=== PATIENT | female | born 1995 | race African-American/Black ===

== ENCOUNTER 2019-10-01 19:18 | Emergency (ER) | payer BC ==
--- NOTE | 2019-10-01 20:51 | Event Note ---
ED Screening Note Date of service: 10/01/19 Time: 20:47 ED Screening Note: This is a 24 y.o. F. that presents to the ER with abdominal pain for 2 hours. Patient is 17 weeks . Reports sharp pain and pelvic pressure that is more frequent. LMP 06/07/2020, with Dr. Mariam Fuentes at [facility] in [place]. Denies vaginal bleeding, urinary frequency, urgency, dysuria, hematuria, or back pain. This initial assessment/diagnostic orders/clinical plan/treatment(s) is/are subject to change based on patients health status, clinical progression and re- assessment by fellow clinical providers in the ED. Further treatment and workup at subsequent clinical providers discretion. Patient/guardian urged not to elope from the ED as their condition may be serious if not clinically assessed and managed. Initial orders include: Labs OB US
[2019-10-01 21:43] LABS: Bilirubin,Urine NEG (Negative); Blood,Urine MOD (Negative); Color,Urine Straw (Yellow); Protein,Urine <15 mg/dL mg/dL (Negative); Urobilinogen,Urine < 2.0 mg/dL (<2.0)
[2019-10-01 21:48] LABS: HCG Qualitative,Urine Positive (Negative)
[2019-10-01] MEDS ORDERED: ACETAMINOPHEN 500 MG TAB PO ONE (23:41)
--- NOTE | 2019-10-02 00:03 | Ultrasound Report ---
ULTRASOUND OBSTETRIC INDICATION / CLINICAL INFORMATION: abdominal pain, 17 wks preg. Clinical Gestational Age (GA): Uncertain TECHNIQUE: Transabdominal. COMPARISON: None available. FINDINGS: There is a single intrauterine . Biparietal Diameter = 3.9 cm = 18 weeks, 0 day(s). Head Circumference = 14.7 cm = 17 weeks, 6 day(s). Abdominal Circumference = 12.6 cm = 18 weeks, 2 day(s). Femur Length = 2.1 cm = 17 weeks, 3 day(s). Average Ultrasound Age (AUA) = 17 weeks, 6 day(s). Heart Rate: 139 beats per minute. Estimated Weight in grams (if calculated): 2 13 g Estimated Weight Growth Percentile (if calculated): Position: cephalic. Cervix: closed. Length in cm (if measured): 3.5 cm Placenta: Left lateral and free of the os. Amniotic Fluid Volume: normal Amniotic Fluid Index (MADYSON) in cm (if calculated): Not calculated. Maternal Adnexa: No significant abnormality. IMPRESSION: 1. Single, living intrauterine with estimated sonographic age of 17 weeks, 6 day(s). 2. No significant sonographic abnormality. Signer Name: Deborah Ferraro MD Signed: 10/01/2019 11:58 PM Workstation Name: [id number]
[2019-10-02 00:40] LABS: Basophils % (Auto) 0.3 % (0.0-1.8); Eosinophils # (Auto) 0.1 K/mm3 (0.0-0.4); Eosinophils % (Auto) 0.6 % (0.0-4.3); Hematocrit 37.9 % (30.3-42.9); Lymphocytes # (Auto) 2.6 K/mm3 (1.2-5.4); Mean Corpuscular HGB Conc 34 % (30-34); Mean Corpuscular Volume 92 fl (79-97); Monocytes # (Auto) 0.7 K/mm3 (0.0-0.8); Monocytes % (Auto) 6.5 % (0.0-7.3); Platelet Count 262 K/mm3 (140-440); Red Blood Count 4.14 M/mm3 (3.65-5.03); Red Cell Distribution Width 14.2 % (13.2-15.2)
[2019-10-02 00:59] LABS: Alanine Aminotransferase 19 units/L (7-56); Albumin 4.1 g/dL (3.9-5); BUN/Creatinine Ratio 14; Blood Urea Nitrogen 7 mg/dL (7-17); Calcium 9.1 mg/dL (8.4-10.2); Hemolysis Index 9
--- NOTE | 2019-10-02 01:44 | Emergency Department Report ---
ED Abdominal Pain HPI - General Chief Complaint: Abdominal Pain Stated Complaint: 17 WEEKS PREG, ABD PAIN,SIDE PAIN Time Seen by Provider: 10/01/19 20:47 Source: patient Mode of arrival: Ambulatory Limitations: No Limitations - History of Present Illness Initial Comments: Patient is a A0 24-year-old female who is approximately 17 weeks gestation and who presents to the ED with complaint of acute onset persistent diffuse lower abdominal pain for the last 8 hours worse in the last 2 hours. Patient denies nausea, vomiting, vaginal bleeding, vaginal discharge, dysuria, urinary frequency and urgency, traumatic injury, heavy lifting, fever, chills, cough, chest pain, shortness of breath or headache and syncope. MD Complaint: abdominal pain -: Sudden, hour(s) (8) Location: periumbilical, suprapubic Radiation: suprapubic Migration to: no migration Severity scale (0 -10): 3 Quality: cramping, aching Consistency: constant Improves With: nothing Worsens With: nothing Associated Symptoms: denies other symptoms. denies: nausea, vomiting, diarrhea, fever, chills, dysuria, hematemesis, hematochezia, melena, hematuria, anorexia, syncope - Related Data Previous Rx's Medication Instructions Recorded Last Taken Type Acetaminophen [Mapap] 500 mg PO Q6H PRN #30 tablet 10/02/19 Unknown Rx Allergies Allergy/AdvReac Type Severity Reaction Status Date / Time No Known Allergies Allergy Unverified 10/01/19 19:29 ED Review of Systems ROS: Stated complaint: 17 WEEKS PREG, ABD PAIN,SIDE PAIN Other details as noted in HPI Constitutional: denies: chills, fever Eyes: denies: eye pain, eye discharge, vision change ENT: denies: ear pain, throat pain Respiratory: denies: cough, shortness of breath, wheezing Cardiovascular: denies: chest pain, palpitations Endocrine: no symptoms reported Gastrointestinal: abdominal pain (diffuse lower). denies: nausea, vomiting, di arrhea Genitourinary: denies: urgency, dysuria, discharge Musculoskeletal: denies: back pain, joint swelling, arthralgia Skin: denies: rash, lesions Neurological: denies: headache, weakness, paresthesias Psychiatric: denies: anxiety, depression Hematological/Lymphatic: denies: easy bleeding, easy bruising ED Past Medical Hx - Past Medical History Previous Medical History?: No - Surgical History Past Surgical History?: No - Social History Smoking Status: Never Smoker Substance Use Type: None - Medications Home Medications: Home Medications Medication Instructions Recorded Confirmed Last Taken Type Acetaminophen [Mapap] 500 mg PO Q6H PRN #30 tablet 10/02/19 Unknown Rx ED Physical Exam - General Limitations: No Limitations General appearance: alert, in no apparent distress - Head Head exam: Present: atraumatic, normocephalic, normal inspection - Eye Eye exam: Present: normal appearance, PERRL, EOMI Pupils: Present: normal accommodation - ENT ENT exam: Present: normal exam, normal orophraynx, mucous membranes moist, TM's normal bilaterally, normal external ear exam - Neck Neck exam: Present: normal inspection, full ROM. Absent: tenderness, lymphadenopathy - Respiratory Respiratory exam: Present: normal lung sounds bilaterally. Absent: respiratory distress, wheezes, rales, rhonchi, chest wall tenderness, accessory muscle use, decreased breath sounds - Cardiovascular Cardiovascular Exam: Present: regular rate, normal rhythm, normal heart sounds. Absent: systolic murmur, diastolic murmur, rubs, gallop - GI/Abdominal GI/Abdominal exam: Present: soft, tenderness (Mild diffuse lower abdominal tenderness), normal bowel sounds. Absent: guarding, rebound, hyperactive bowel sounds - Bi-manual exam: Present: other (Pelvic exam deferred) - Extremities Exam Extremities exam: Present: normal inspection, full ROM, normal capillary refill - Back Exam Back exam: Present: normal inspection, full ROM. Absent: tenderness, CVA tenderness (R), CVA tenderness (L), muscle spasm, paraspinal tenderness - Neurological Exam Neurological exam: Present: alert, oriented X3, CN II-XII intact, normal gait, reflexes normal - Psychiatric Psychiatric exam: Present: normal affect, normal mood - Skin Skin exam: Present: warm, dry, intact, normal color. Absent: rash ED Course Vital Signs 10/01/19 19:24 Temperature 97.9 F Pulse Rate 76 Respiratory 18 Rate Blood Pressure 144/73 O2 Sat by Pulse 99 Oximetry ED Medical Decision Making - Lab Data Result diagrams: 10/01/19 23:47 10/01/19 23:47 - Radiology Data Radiology results: report reviewed, image reviewed Findings [facility] [address] [place] [address] Ultrasound Report Signed Patient: SAWYER PENA#: [id number] : 1995 Acct:[id number] Age/Sex: 24 / F ADM Date: 10/01/19 Loc: ED Attending Dr: Ordering Physician: DIONY PACHECO Date of Service: 10/01/19 Procedure(s): US OB >= 14 weeks Fetus Accession Number(s): [id number] cc: DIONY PACHECO ULTRASOUND OBSTETRIC INDICATION / CLINICAL INFORMATION: abdominal pain, 17 wks preg. Clinical Gestational Age (GA): Uncertain TECHNIQUE: Transabdominal. COMPARISON: None available. FINDINGS: There is a single intrauterine . Biparietal Diameter = 3.9 cm = 18 weeks, 0 day(s). Head Circumference = 14.7 cm = 17 weeks, 6 day(s). Abdominal Circumference = 12.6 cm = 18 weeks, 2 day(s). Femur Length = 2.1 cm = 17 weeks, 3 day(s). Average Ultrasound Age (AUA) = 17 weeks, 6 day(s). Heart Rate: 139 beats per minute. Estimated Weight in grams (if calculated): 2 13 g Estimated Weight Growth Percentile (if calculated): Position: cephalic. Cervix: closed. Length in cm (if measured): 3.5 cm Placenta: Left lateral and free of the os. Amniotic Fluid Volume: normal Amniotic Fluid Index (MADYSON) in cm (if calculated): Not calculated. Maternal Adnexa: No significant abnormality. IMPRESSION: 1. Single, living intrauterine with estimated sonographic age of 17 weeks, 6 day(s). 2. No significant sonographic abnormality. Signer Name: Deborah Ferraro MD Signed: 10/01/2019 11:58 PM Workstation Name: [id number] Transcribed By: JR Dictated By: Deborah Ferraro MD Electronically Authenticated By: Deborah Ferraro MD Signed Date/Time: 10/01/192357 DD/ 54 TD/TT: - Medical Decision Making This is a 24-year-old female who is A0 and is approximately 17 weeks gestation and who presented to the ED with acute diffuse lower abdominal pain. In the ED, patient is alert and oriented x3 and is not in any distress. Lab test results were reviewed and are all nonactionable. Transvaginal ultrasound shows a single, living intrauterine with estimated sonographic age of 17 weeks, 6 day(s) with a heart rate of 139 bpm. There are no significant sonographic abnormality. Patient was treated for pain in the ED and on reevaluation, patient's pain is well controlled with medications. Patient was discharged home and advised to take Tylenol as needed for pain, and to maintain a complete pelvic rest until followed up by the [facility] physician in 5 to 7 days for reevaluation. Patient was advised to return to the ED immediately if symptoms get worse. - Differential Diagnosis Ovarian cyst; UTI; Muscle strain; Constipation; subchorionic bleed Critical care attestation.: If time is entered above; I have spent that time in minutes in the direct care of this critically ill patient, excluding procedure time. ED Disposition Clinical Impression: Abdominal pain during in second trimester Disposition: - TO HOME OR SELFCARE Is pt being admited?: No Does the pt Need Aspirin: No Condition: Stable Instructions: Abdominal Pain in (ED) Additional Instructions: Maintain a complete pelvic rest for 5 to 7 days, with no heavy lifting, strenuous physical activity or sexual activity and follow-up with the [facility] physician in 5 to 7 days for reevaluation. Take Tylenol as needed for pain with food. Return to the ED immediately if symptoms get worse. Prescriptions: Acetaminophen [Mapap] 500 mg PO Q6H PRN #30 tablet PRN Reason: Pain , Severe (7-10) Referrals: SCAR DAVSI DO [Staff Physician] - 3-5 Days Time of Disposition: 01:48 Print Language: TAMAZIGHT
[2019-10-02 04:19] VITALS: BP 137/73
== END 2019-10-02 03:05 | disposition home or self-care (01) ==
LOC: ED 19:18
DX: O26.892 Other specified pregnancy related conditions, second trimester (principal); R10.30 Lower abdominal pain, unspecified; Z79.899 Other long term (current) drug therapy; Z3A.17 17 weeks gestation of pregnancy
CPT/HCPCS: 36415; 76805; 80053; 81001; 81025; 84702; 85025; 86900; 86901

== ENCOUNTER 2021-12-12 23:41 | Outpatient (CLI) | payer BC, OTHER ==
[2021-12-13] MEDS ORDERED: fentaNYL 100 MCG/2 ML INJ IV PRN (00:45)
[2021-12-13] MEDS ORDERED: METHYLERGONOVINE MALEATE 0.2 MG/ML VIAL IM PRN (00:45)
[2021-12-13] MEDS ORDERED: BUTORPHANOL 2 MG/1 ML INJ IV PRN (00:45)
[2021-12-13] MEDS ORDERED: CARBOPROST TROMETHAMINE 250 MCG/1 ML INJ IM PRN (00:45)
[2021-12-13] MEDS ORDERED: ePHEDrine SULFATE 50 MG/1 ML INJ IV PRN (00:45)
[2021-12-13] MEDS ORDERED: TERBUTALINE 1 MG/1 ML INJ SUB-Q PRN (00:45)
[2021-12-13] MEDS ORDERED: ACETAMINOPHEN 325 MG TAB PO PRN (00:45)
[2021-12-13] MEDS ORDERED: LACTATED RINGERS 1,000 ML IV SCH (00:45)
--- NOTE | 2021-12-13 00:45 | History and Physical Report ---
Past History - Obstetrical History : 1 Medications and Allergies Allergies Allergy/AdvReac Type Severity Reaction Status Date / Time No Known Allergies Allergy Unverified 10/01/19 19:29 Home Medications Medication Instructions Recorded Confirmed Last Taken Type Vit-Fe Fumar-FA [ 1 tab PO DAILY 03/02/20 03/02/20 03/02/20 10:00 History Vitamin] Benzocaine/Menthol [Dermoplast] 1 spray TP PRN PRN can 12/17/21 Unknown Rx Docusate Sodium [Colace CAP] 100 mg PO BID capsule 12/17/21 Unknown Rx Ferrous Sulfate [Feosol 325 MG tab] 325 mg PO TID 30 Days #90 tablet 12/17/21 Unknown Rx Glycerin/ Witch Ginny Pad [Tucks 1 each TP PRN PRN box 12/17/21 Unknown Rx Pad] Ibuprofen [Motrin 600 MG tab] 600 mg PO Q6H #40 tablet 12/17/21 Unknown Rx Lanolin/Zinc/Dimethicone [Lansinoh] 1 applic TP PRN PRN oint 12/17/21 Unknown Rx - Vital Signs Vital signs: Vital Signs Pulse Pulse Ox 63 98 12/13/21 00:01 12/13/21 00:01 Temp Pulse Resp BP Pulse Ox 63 124/69 95 12/13/21 00:41 12/13/21 00:39 12/13/21 00:41 Results All other labs normal.
[2021-12-13] MEDS ORDERED: miSOPROStol 25 MCG TAB PO SCH (01:00)
[2021-12-13] MEDS ORDERED: OXYTOCIN DRIP 30 UNITS/500 ML BAG IV SCH (01:00)
[2021-12-13 02:20] VITALS: BP 135/78
--- NOTE | 2021-12-16 07:57 | Ultrasound Report ---
ULTRASOUND OBSTETRIC COMPLETE INDICATION / CLINICAL INFORMATION: Gestational diabetes A2, Pain. Clinical Gestational Age (GA) in weeks.days: 38.5 TECHNIQUE: Transabdominal. COMPARISON: None available. FINDINGS: NUMBER: Single PRESENTATION: cephalic PLACENTA: anterior and free of the os. MATERNAL ADNEXA: No significant abnormality. AMNIOTIC FLUID VOLUME: decreased AMNIOTIC FLUID INDEX (MADYSON) in cm (if measured): 6.0. Normal range 7-20 4 cm. ANATOMY: anatomical survey was not performed. MEASUREMENTS: - Biparietal Diameter = 9.2 cm = 37.2 weeks.days - Head Circumference = 32.7 cm = 37.0 weeks.days - Abdominal Circumference = 34.9 cm = 38.5 weeks.days - Femur Length = 5.8 cm = 30.3 weeks.days - Estimated Weight (in grams, if calculated): 2961 - Heart Rate (beats per minute): 159 ADDITIONAL FINDINGS: None. PERCENTILE ESTIMATED WEIGHT (if calculated): 17 AVERAGE ULTRASOUND AGE (AUA) in weeks.days = 35.6 IMPRESSION: 1. Single intrauterine with AUA of 35.6 weeks.days 2. No acute abnormality is detected. Signer Name: Keyon Ku Jr, MD Signed: 12/16/2021 7:53 AM Workstation Name: [id number]
== END 2021-12-13 03:15 | disposition home or self-care (01) ==
LOC: TRG 23:41 → APU 23:43 → TRG 12-13 03:15
PROVIDERS: ATTEND Obstetrics & Gynecology
DX: O62.9 Abnormality of forces of labor, unspecified (principal); O24.419 Gestational diabetes mellitus in pregnancy, unspecified control; O99.213 Obesity complicating pregnancy, third trimester; E66.9 Obesity, unspecified; O99.613 Diseases of the digestive system complicating pregnancy, third trimester; K21.9 Gastro-esophageal reflux disease without esophagitis; Z87.891 Personal history of nicotine dependence; Z3A.38 38 weeks gestation of pregnancy
CPT/HCPCS: 59025; 76815; 76816; 96360

== ENCOUNTER 2021-12-14 13:58 | Inpatient (IN) | payer SELFPAY ==
[2021-12-14 17:28] LABS: Hematocrit 31.7 % (30.3-42.9); Hemoglobin 11.1 gm/dl (10.1-14.3); Mean Corpuscular HGB Conc 35 % (30-34); Mean Corpuscular Volume 93 fl (79-97); Platelet Count 200 K/mm3 (140-440); Red Blood Count 3.42 M/mm3 (3.65-5.03)
[2021-12-14 17:38] LABS: Alanine Aminotransferase 24 units/L (7-56); Uric Acid 5.2 mg/dL (3.5-7.6)
[2021-12-14 17:56] LABS: Bilirubin,Urine NEG (Negative); Blood,Urine SM (Negative); Color,Urine Yellow (Yellow); Mucus,Urine FEW /HPF; Urobilinogen,Urine < 2.0 mg/dL (<2.0)
[2021-12-14] MEDS ORDERED: LIDOCAINE (2%) 20 MG/1 ML VIAL 20 ML MDV INFILTRATI ONE (18:00)
[2021-12-14] MEDS ORDERED: miSOPROStol 200 MCG TAB PR PRN (18:00)
[2021-12-14] MEDS ORDERED: BUTORPHANOL 2 MG/1 ML INJ IV PRN ×2 (18:00)
[2021-12-14] MEDS ORDERED: PROMETHAZINE 25 MG TAB PO PRN (18:00)
[2021-12-14] MEDS ORDERED: ACETAMINOPHEN 325 MG TAB PO PRN (18:00)
[2021-12-14] MEDS ORDERED: DINOPROSTONE 10 MG VAG SUPP VG ONE (18:00)
[2021-12-14] MEDS ORDERED: ONDANSETRON 4 MG/2 ML INJ IV PRN (18:00)
[2021-12-14] MEDS ORDERED: CARBOPROST TROMETHAMINE 250 MCG/1 ML INJ IM PRN (18:00)
[2021-12-14] MEDS ORDERED: AMPICILLIN/NS 2 GM/100 ML 2 GM/100 ML BAG IV ONE ×2 (18:00→23:14)
[2021-12-14] MEDS ORDERED: OXYTOCIN 10 UNIT/1 ML INJ IM PRN (18:00)
[2021-12-14] MEDS ORDERED: fentaNYL 100 MCG/2 ML INJ IV PRN (18:00)
[2021-12-14] MEDS ORDERED: OXYTOCIN DRIP 30 UNITS/500 ML BAG IV SCH ×2 (18:00)
[2021-12-14] MEDS ORDERED: METHYLERGONOVINE MALEATE 0.2 MG/ML VIAL IM PRN (18:00)
[2021-12-14] MEDS ORDERED: TERBUTALINE 1 MG/1 ML INJ SUB-Q PRN (18:00)
[2021-12-14] MEDS ORDERED: MINERAL OIL 30 ML ORAL LIQD PO PRN (18:00)
[2021-12-14] MEDS ORDERED: LOPERAMIDE 2 MG CAP PO PRN (18:00)
[2021-12-14] MEDS ORDERED: ePHEDrine SULFATE 50 MG/1 ML INJ IV PRN (18:00)
[2021-12-14] MEDS ORDERED: NALOXONE 0.4 MG/1 ML INJ IV PRN (18:00)
--- NOTE | 2021-12-14 18:05 | History and Physical Report ---
History of Present Illness Date of examination: 12/14/21 Chief complaint: Elevated blood pressures, headache and mild preeclampsia by blood pressure criteria History of present illness: 26-year-old -0-0-1 at 38 0.6 weeks with EDC 12/22/2021 presents with headache visual disturbances and elevated blood pressure at term. Plan is for admission for induction of labor for preeclampsia. dated by 7-week ultrasound. GBS positive Marginal sent to previa resolved on ultrasound dated 10/02/2021 Gestational diabetes on metformin 500 mg p.o. nightly macrosomia suspected with AC in the 90th percentile on ultrasound 10/02/2021: Repeat ultrasound in OB triage with EFW within normal limits 12/13/2021 at 2900 g Past History Past Medical History: other (GDM, reactive airway disease in childhood) Past Surgical History: no surgical history Family/Genetic History: none Social history: no significant social history - Obstetrical History Expected Date of Delivery: 12/22/21 Actual Gestation: 38 Week(s) 6 Day(s) : 2 Para: 1 #1 Infant Gender: Male year: 21 Birthweight: 3.6 kg Method of Delivery: Vaginal Gestational age at delivery: 39 Complications: none Medications and Allergies Allergies Allergy/AdvReac Type Severity Reaction Status Date / Time No Known Allergies Allergy Unverified 10/01/19 19:29 Home Medications Medication Instructions Recorded Confirmed Last Taken Type Vit-Fe Fumar-FA [ 1 tab PO DAILY 03/02/20 03/02/20 03/02/20 10:00 History Vitamin] Active Meds: Active Medications Lidocaine (Lidocaine (2%) 20 Mg/1 Ml Vial 20 Ml Mdv) 20 ml INFILTRATI ONCE ONE Stop: 12/14/21 18:01 - Vital Signs Vital signs: Vital Signs Pulse Pulse Ox 63 98 12/14/21 14:28 12/14/21 14:28 Temp Pulse Resp BP Pulse Ox 98.1 F 51 L 18 160/99 97 12/14/21 17:31 12/14/21 18:01 12/14/21 17:31 12/14/21 18:01 12/14/21 18:00 - Physical Exam Breasts: Positive: deferred Cardiovascular: Regular rate, Normal S1 Lungs: Positive: Clear to auscultation, Normal air movement Abdomen: Positive: normal appearance, soft, normal bowel sounds Genitourinary (Female): Positive: normal external genitalia, normal perenium Uterus: Positive: enlarged Anus/Rectum: Positive: normal perianal skin Extremities: Positive: normal Deep Tendon Reflex Grade: Normal +2 - Obstetrical Uterine Contraction Monitor Mode: Internal Cervical Dilatation: 1 Uterine Contraction Pattern: Regular Results Result Diagrams: 12/14/21 Unknown 12/14/21 Unknown Abnormal lab results 12/14/21 12/14/21 12/14/21 Range/Units Unknown Unknown Unknown RBC 3.42 L (3.65-5.03) M/mm3 MCH 33 H (28-32) pg MCHC 35 H (30-34) % RDW 13.0 L (13.2-15.2) % Lactate Dehydrogenase 206 H (91-180) units/L Urine WBC (Auto) 106.0 H (0.0-6.0) /HPF U Epithel Cells (Auto) 47.0 H (0-13.0) /HPF All other labs normal. Assessment and Plan Preeclampsia at term Gestational diabetes, will order metformin 500 mg p.o. nightly per antepartum regimen Plan for admission, magnesium sulfate for seizure prophylaxis and Cervidil for induction of labor patient (does not have active asthma or reactive airway disease) PIH labs stable EFW in OB triage yesterday 12/13/21 @2961gms, AC 71% CFM GBS prophylaxis Maternal/ well being reassuring overall Nigel Nova MD
[2021-12-14] MEDS ORDERED: MAGNESIUM SULFATE 4 GM/100 ML BAG IV ONE (19:53)
[2021-12-14] MEDS ORDERED: MAGNESIUM SULFATE 40GM/1000ML 40 GM/1,000 ML BAG IV SCH (20:00)
[2021-12-14] MEDS: LACTATED RINGERS 1,000 ML IV SCH (21:07)
[2021-12-14 21:35] LABS: Hematocrit 34.9 % (30.3-42.9); Mean Corpuscular HGB Conc 34 % (30-34); Mean Corpuscular Volume 93 fl (79-97); Platelet Count 225 K/mm3 (140-440); Red Blood Count 3.76 M/mm3 (3.65-5.03); Red Cell Distribution Width 13.2 % (13.2-15.2)
[2021-12-15] MEDS: AMPICILLIN/NS 1 GM/50 ML 1 GM/50 ML BAG IV SCH ×3 (02:36→13:46)
--- NOTE | 2021-12-15 08:56 | Progress Note ---
Subjective - Subjective Date of service: 12/15/21 Interval history: Cervix posterior,cervidil removed unable to AROM plan for epidural and cytotec Nigel Nova MD Objective - Vital Signs Vital Signs: Vital Signs - 12hr 12/14/21 12/14/21 12/14/21 20:56 20:58 21:03 Temperature Pulse Rate 62 57 L 66 Respiratory Rate Blood Pressure O2 Sat by Pulse 93 99 98 Oximetry O2 Sat by Pulse Oximetry [ Bilateral Throughout] O2 Sat by Pulse Oximetry [ Throughout] 12/14/21 12/14/21 12/14/21 21:08 21:13 21:18 Temperature Pulse Rate 60 66 70 Respiratory Rate Blood Pressure O2 Sat by Pulse 98 98 99 Oximetry O2 Sat by Pulse Oximetry [ Bilateral Throughout] O2 Sat by Pulse Oximetry [ Throughout] 12/14/21 12/14/21 12/14/21 21:23 21:28 21:33 Temperature Pulse Rate 66 66 66 Respiratory Rate Blood Pressure O2 Sat by Pulse 99 98 98 Oximetry O2 Sat by Pulse Oximetry [ Bilateral Throughout] O2 Sat by Pulse Oximetry [ Throughout] 12/14/21 12/14/21 12/14/21 21:36 21:38 21:43 Temperature Pulse Rate 63 60 67 Respiratory Rate Blood Pressure 127/70 O2 Sat by Pulse 98 98 Oximetry O2 Sat by Pulse Oximetry [ Bilateral Throughout] O2 Sat by Pulse Oximetry [ Throughout] 12/14/21 12/14/21 12/14/21 21:51 21:54 21:56 Temperature Pulse Rate 67 52 L 69 Respiratory Rate Blood Pressure O2 Sat by Pulse 99 93 97 Oximetry O2 Sat by Pulse Oximetry [ Bilateral Throughout] O2 Sat by Pulse Oximetry [ Throughout] 12/14/21 12/14/21 12/14/21 22:01 22:06 22:11 Temperature Pulse Rate 66 66 66 Respiratory Rate Blood Pressure O2 Sat by Pulse 98 97 97 Oximetry O2 Sat by Pulse Oximetry [ Bilateral Throughout] O2 Sat by Pulse Oximetry [ Throughout] 12/14/21 12/14/21 12/14/21 22:16 22:21 22:26 Temperature Pulse Rate 75 68 67 Respiratory Rate Blood Pressure O2 Sat by Pulse 98 98 98 Oximetry O2 Sat by Pulse Oximetry [ Bilateral Throughout] O2 Sat by Pulse Oximetry [ Throughout] 12/14/21 12/14/21 12/14/21 22:31 22:36 22:41 Temperature Pulse Rate 65 76 61 Respiratory Rate Blood Pressure O2 Sat by Pulse 98 98 98 Oximetry O2 Sat by Pulse Oximetry [ Bilateral Throughout] O2 Sat by Pulse Oximetry [ Throughout] 12/14/21 12/14/21 12/14/21 22:46 22:51 22:56 Temperature Pulse Rate 69 60 68 Respiratory Rate Blood Pressure O2 Sat by Pulse 97 98 98 Oximetry O2 Sat by Pulse Oximetry [ Bilateral Throughout] O2 Sat by Pulse Oximetry [ Throughout] 12/14/21 12/14/21 12/14/21 22:59 23:01 23:06 Temperature Pulse Rate 77 62 57 L Respiratory Rate Blood Pressure O2 Sat by Pulse 94 97 97 Oximetry O2 Sat by Pulse Oximetry [ Bilateral Throughout] O2 Sat by Pulse Oximetry [ Throughout] 12/14/21 12/14/21 12/14/21 23:07 23:11 23:16 Temperature Pulse Rate 63 62 66 Respiratory Rate Blood Pressure 118/70 O2 Sat by Pulse 97 99 Oximetry O2 Sat by Pulse Oximetry [ Bilateral Throughout] O2 Sat by Pulse Oximetry [ Throughout] 12/14/21 12/14/21 12/14/21 23:20 23:21 23:26 Temperature Pulse Rate 65 65 65 Respiratory Rate Blood Pressure O2 Sat by Pulse 94 98 98 Oximetry O2 Sat by Pulse Oximetry [ Bilateral Throughout] O2 Sat by Pulse Oximetry [ Throughout] 12/14/21 12/14/21 12/14/21 23:31 23:36 23:41 Temperature Pulse Rate 62 60 57 L Respiratory Rate Blood Pressure O2 Sat by Pulse 98 98 98 Oximetry O2 Sat by Pulse Oximetry [ Bilateral Throughout] O2 Sat by Pulse Oximetry [ Throughout] 12/14/21 12/14/21 12/14/21 23:46 23:51 23:56 Temperature Pulse Rate 58 L 55 L 57 L Respiratory Rate Blood Pressure O2 Sat by Pulse 98 98 98 Oximetry O2 Sat by Pulse Oximetry [ Bilateral Throughout] O2 Sat by Pulse Oximetry [ Throughout] 12/15/21 12/15/21 12/15/21 00:01 00:06 00:11 Temperature Pulse Rate 57 L 57 L 60 Respiratory Rate Blood Pressure O2 Sat by Pulse 98 98 98 Oximetry O2 Sat by Pulse Oximetry [ Bilateral Throughout] O2 Sat by Pulse Oximetry [ Throughout] 12/15/21 12/15/21 12/15/21 00:16 00:21 00:26 Temperature Pulse Rate 56 L 57 L 59 L Respiratory Rate Blood Pressure O2 Sat by Pulse 98 98 98 Oximetry O2 Sat by Pulse Oximetry [ Bilateral Throughout] O2 Sat by Pulse Oximetry [ Throughout] 12/15/21 12/15/21 12/15/21 00:38 00:43 00:48 Temperature Pulse Rate 79 56 L 54 L Respiratory Rate Blood Pressure O2 Sat by Pulse 98 99 98 Oximetry O2 Sat by Pulse Oximetry [ Bilateral Throughout] O2 Sat by Pulse Oximetry [ Throughout] 12/15/21 12/15/21 12/15/21 00:53 00:58 01:03 Temperature Pulse Rate 49 L 47 L 47 L Respiratory Rate Blood Pressure O2 Sat by Pulse 98 99 99 Oximetry O2 Sat by Pulse Oximetry [ Bilateral Throughout] O2 Sat by Pulse Oximetry [ Throughout] 12/15/21 12/15/21 12/15/21 01:08 01:13 01:18 Temperature Pulse Rate 48 L 49 L 49 L Respiratory Rate Blood Pressure O2 Sat by Pulse 98 99 99 Oximetry O2 Sat by Pulse Oximetry [ Bilateral Throughout] O2 Sat by Pulse Oximetry [ Throughout] 12/15/21 12/15/21 12/15/21 01:23 01:28 01:33 Temperature Pulse Rate 48 L 46 L 47 L Respiratory Rate Blood Pressure O2 Sat by Pulse 99 98 98 Oximetry O2 Sat by Pulse Oximetry [ Bilateral Throughout] O2 Sat by Pulse Oximetry [ Throughout] 12/15/21 12/15/21 12/15/21 01:38 01:43 01:48 Temperature Pulse Rate 49 L 49 L 50 L Respiratory Rate Blood Pressure O2 Sat by Pulse 98 98 98 Oximetry O2 Sat by Pulse Oximetry [ Bilateral Throughout] O2 Sat by Pulse Oximetry [ Throughout] 12/15/21 12/15/21 12/15/21 01:53 01:58 02:03 Temperature Pulse Rate 50 L 53 L 55 L Respiratory Rate Blood Pressure O2 Sat by Pulse 98 98 98 Oximetry O2 Sat by Pulse Oximetry [ Bilateral Throughout] O2 Sat by Pulse Oximetry [ Throughout] 12/15/21 12/15/21 12/15/21 02:08 02:13 02:18 Temperature Pulse Rate 51 L 51 L 48 L Respiratory Rate Blood Pressure O2 Sat by Pulse 98 98 98 Oximetry O2 Sat by Pulse Oximetry [ Bilateral Throughout] O2 Sat by Pulse Oximetry [ Throughout] 12/15/21 12/15/21 12/15/21 02:22 02:23 02:28 Temperature Pulse Rate 62 70 52 L Respiratory Rate Blood Pressure O2 Sat by Pulse 93 97 98 Oximetry O2 Sat by Pulse Oximetry [ Bilateral Throughout] O2 Sat by Pulse Oximetry [ Throughout] 12/15/21 12/15/21 12/15/21 02:33 02:38 02:43 Temperature Pulse Rate 54 L 51 L 49 L Respiratory Rate Blood Pressure 129/72 O2 Sat by Pulse 99 100 98 Oximetry O2 Sat by Pulse Oximetry [ Bilateral Throughout] O2 Sat by Pulse Oximetry [ Throughout] 12/15/21 12/15/21 12/15/21 02:48 02:53 02:58 Temperature Pulse Rate 47 L 48 L 44 L Respiratory Rate Blood Pressure O2 Sat by Pulse 98 98 98 Oximetry O2 Sat by Pulse Oximetry [ Bilateral Throughout] O2 Sat by Pulse Oximetry [ Throughout] 12/15/21 12/15/21 12/15/21 03:03 03:08 03:13 Temperature Pulse Rate 48 L 50 L 53 L Respiratory Rate Blood Pressure O2 Sat by Pulse 98 98 97 Oximetry O2 Sat by Pulse Oximetry [ Bilateral Throughout] O2 Sat by Pulse Oximetry [ Throughout] 12/15/21 12/15/21 12/15/21 03:18 03:23 03:28 Temperature Pulse Rate 54 L 49 L 51 L Respiratory Rate Blood Pressure O2 Sat by Pulse 97 97 97 Oximetry O2 Sat by Pulse Oximetry [ Bilateral Throughout] O2 Sat by Pulse Oximetry [ Throughout] 12/15/21 12/15/21 12/15/21 03:33 03:38 03:39 Temperature Pulse Rate 47 L 53 L 51 L Respiratory Rate Blood Pressure 127/65 O2 Sat by Pulse 98 97 Oximetry O2 Sat by Pulse Oximetry [ Bilateral Throughout] O2 Sat by Pulse Oximetry [ Throughout] 12/15/21 12/15/21 12/15/21 03:43 03:48 03:53 Temperature Pulse Rate 52 L 51 L 57 L Respiratory Rate Blood Pressure O2 Sat by Pulse 98 97 97 Oximetry O2 Sat by Pulse Oximetry [ Bilateral Throughout] O2 Sat by Pulse Oximetry [ Throughout] 12/15/21 12/15/21 12/15/21 03:58 04:03 04:07 Temperature Pulse Rate 50 L 62 61 Respiratory Rate Blood Pressure O2 Sat by Pulse 98 98 93 Oximetry O2 Sat by Pulse Oximetry [ Bilateral Throughout] O2 Sat by Pulse Oximetry [ Throughout] 12/15/21 12/15/21 12/15/21 04:08 04:13 04:18 Temperature Pulse Rate 56 L 50 L 48 L Respiratory Rate Blood Pressure O2 Sat by Pulse 98 98 99 Oximetry O2 Sat by Pulse Oximetry [ Bilateral Throughout] O2 Sat by Pulse Oximetry [ Throughout] 12/15/21 12/15/21 12/15/21 04:23 04:33 04:38 Temperature Pulse Rate 47 L 72 55 L Respiratory Rate Blood Pressure O2 Sat by Pulse 98 0 L 99 Oximetry O2 Sat by Pulse Oximetry [ Bilateral Throughout] O2 Sat by Pulse Oximetry [ Throughout] 12/15/21 12/15/21 12/15/21 04:39 04:43 04:48 Temperature Pulse Rate 53 L 52 L 52 L Respiratory Rate Blood Pressure 149/84 O2 Sat by Pulse 99 99 Oximetry O2 Sat by Pulse Oximetry [ Bilateral Throughout] O2 Sat by Pulse Oximetry [ Throughout] 12/15/21 12/15/21 12/15/21 04:53 04:58 05:03 Temperature Pulse Rate 48 L 46 L 48 L Respiratory Rate Blood Pressure O2 Sat by Pulse 99 99 99 Oximetry O2 Sat by Pulse Oximetry [ Bilateral Throughout] O2 Sat by Pulse Oximetry [ Throughout] 12/15/21 12/15/21 12/15/21 05:08 05:13 05:18 Temperature Pulse Rate 47 L 48 L 46 L Respiratory Rate Blood Pressure O2 Sat by Pulse 99 99 99 Oximetry O2 Sat by Pulse Oximetry [ Bilateral Throughout] O2 Sat by Pulse Oximetry [ Throughout] 12/15/21 12/15/21 12/15/21 05:23 05:28 05:33 Temperature Pulse Rate 46 L 48 L 49 L Respiratory Rate Blood Pressure O2 Sat by Pulse 99 99 99 Oximetry O2 Sat by Pulse Oximetry [ Bilateral Throughout] O2 Sat by Pulse Oximetry [ Throughout] 12/15/21 12/15/21 12/15/21 05:38 05:39 05:43 Temperature Pulse Rate 48 L 47 L 49 L Respiratory Rate Blood Pressure 173/84 O2 Sat by Pulse 99 99 Oximetry O2 Sat by Pulse Oximetry [ Bilateral Throughout] O2 Sat by Pulse Oximetry [ Throughout] 12/15/21 12/15/21 12/15/21 05:48 05:53 05:58 Temperature Pulse Rate 52 L 54 L 46 L Respiratory Rate Blood Pressure 121/60 O2 Sat by Pulse 99 100 98 Oximetry O2 Sat by Pulse Oximetry [ Bilateral Throughout] O2 Sat by Pulse Oximetry [ Throughout] 12/15/21 12/15/21 12/15/21 06:03 06:08 06:13 Temperature Pulse Rate 46 L 49 L 48 L Respiratory Rate Blood Pressure O2 Sat by Pulse 99 98 99 Oximetry O2 Sat by Pulse Oximetry [ Bilateral Throughout] O2 Sat by Pulse Oximetry [ Throughout] 12/15/21 12/15/21 12/15/21 06:18 06:23 06:28 Temperature Pulse Rate 46 L 48 L 49 L Respiratory Rate Blood Pressure O2 Sat by Pulse 99 99 99 Oximetry O2 Sat by Pulse Oximetry [ Bilateral Throughout] O2 Sat by Pulse Oximetry [ Throughout] 12/15/21 12/15/21 12/15/21 06:33 06:38 06:39 Temperature Pulse Rate 48 L 55 L 50 L Respiratory Rate Blood Pressure 111/64 O2 Sat by Pulse 99 98 Oximetry O2 Sat by Pulse Oximetry [ Bilateral Throughout] O2 Sat by Pulse Oximetry [ Throughout] 12/15/21 12/15/21 12/15/21 06:43 06:48 06:53 Temperature Pulse Rate 49 L 56 L 61 Respiratory Rate Blood Pressure O2 Sat by Pulse 99 99 98 Oximetry O2 Sat by Pulse Oximetry [ Bilateral Throughout] O2 Sat by Pulse Oximetry [ Throughout] 12/15/21 12/15/21 12/15/21 06:56 06:58 07:07 Temperature Pulse Rate 52 L 52 L 70 Respiratory Rate Blood Pressure O2 Sat by Pulse 93 98 97 Oximetry O2 Sat by Pulse Oximetry [ Bilateral Throughout] O2 Sat by Pulse Oximetry [ Throughout] 12/15/21 12/15/21 12/15/21 07:10 07:12 07:16 Temperature 97.7 F Pulse Rate 55 L Respiratory 18 Rate Blood Pressure O2 Sat by Pulse 99 Oximetry O2 Sat by Pulse 99 Oximetry [ Bilateral Throughout] O2 Sat by Pulse 98 Oximetry [ Throughout] 12/15/21 12/15/21 12/15/21 07:17 07:22 07:27 Temperature Pulse Rate 51 L 51 L 49 L Respiratory Rate Blood Pressure O2 Sat by Pulse 98 98 98 Oximetry O2 Sat by Pulse Oximetry [ Bilateral Throughout] O2 Sat by Pulse Oximetry [ Throughout] 12/15/21 12/15/21 12/15/21 07:32 07:37 07:39 Temperature Pulse Rate 50 L 46 L 51 L Respiratory Rate Blood Pressure 143/74 O2 Sat by Pulse 98 98 Oximetry O2 Sat by Pulse Oximetry [ Bilateral Throughout] O2 Sat by Pulse Oximetry [ Throughout] 12/15/21 12/15/21 12/15/21 07:42 07:47 07:52 Temperature Pulse Rate 51 L 47 L 52 L Respiratory Rate Blood Pressure O2 Sat by Pulse 98 99 98 Oximetry O2 Sat by Pulse Oximetry [ Bilateral Throughout] O2 Sat by Pulse Oximetry [ Throughout] 12/15/21 12/15/21 12/15/21 07:57 08:02 08:05 Temperature Pulse Rate 47 L 52 L 50 L Respiratory Rate Blood Pressure O2 Sat by Pulse 98 99 89 Oximetry O2 Sat by Pulse Oximetry [ Bilateral Throughout] O2 Sat by Pulse Oximetry [ Throughout] 12/15/21 12/15/21 12/15/21 08:07 08:12 08:17 Temperature Pulse Rate 50 L 46 L 46 L Respiratory Rate Blood Pressure O2 Sat by Pulse 99 99 98 Oximetry O2 Sat by Pulse Oximetry [ Bilateral Throughout] O2 Sat by Pulse Oximetry [ Throughout] 12/15/21 12/15/21 12/15/21 08:22 08:27 08:32 Temperature Pulse Rate 46 L 49 L 45 L Respiratory Rate Blood Pressure O2 Sat by Pulse 98 98 98 Oximetry O2 Sat by Pulse Oximetry [ Bilateral Throughout] O2 Sat by Pulse Oximetry [ Throughout] 12/15/21 12/15/21 12/15/21 08:37 08:39 08:42 Temperature Pulse Rate 48 L 50 L 46 L Respiratory Rate Blood Pressure 146/89 O2 Sat by Pulse 98 98 Oximetry O2 Sat by Pulse Oximetry [ Bilateral Throughout] O2 Sat by Pulse Oximetry [ Throughout] 12/15/21 12/15/21 12/15/21 08:47 08:50 08:52 Temperature Pulse Rate 47 L 62 63 Respiratory Rate Blood Pressure O2 Sat by Pulse 99 91 100 Oximetry O2 Sat by Pulse Oximetry [ Bilateral Throughout] O2 Sat by Pulse Oximetry [ Throughout] - Labs Labs: Abnormal Labs 12/14/21 12/14/21 12/14/21 Unknown Unknown Unknown RBC 3.42 L MCH 33 H MCHC 35 H RDW 13.0 L Lactate Dehydrogenase 206 H Urine WBC (Auto) 106.0 H U Epithel Cells (Auto) 47.0 H Laboratory Results - last 24 hr 12/14/21 12/14/21 12/14/21 21:00 21:00 Unknown WBC 8.5 RBC 3.76 Hgb 12.0 Hct 34.9 MCV 93 MCH 32 MCHC 34 RDW 13.2 Plt Count 225 Creatinine Estimated GFR Uric Acid AST ALT Lactate Dehydrogenase Urine Color Yellow Urine Turbidity Cloudy Urine pH 6.0 Ur Specific Dickens 1.021 Urine Protein 30 mg/dl Urine Glucose (UA) Neg Urine Ketones Neg Urine Blood Sm Urine Nitrite Neg Urine Bilirubin Neg Urine Urobilinogen < 2.0 Ur Leukocyte Esterase Lg Urine WBC (Auto) 106.0 H Urine RBC (Auto) 16.0 U Epithel Cells (Auto) 47.0 H Urine Mucus Few Urine Yeast (Budding) 2+ Blood Type O POSITIVE Antibody Screen Negative 12/14/21 12/14/21 Unknown Unknown WBC 7.7 RBC 3.42 L Hgb 11.1 Hct 31.7 MCV 93 MCH 33 H MCHC 35 H RDW 13.0 L Plt Count 200 Creatinine 0.6 Estimated GFR > 60 Uric Acid 5.2 AST 21 ALT 24 Lactate Dehydrogenase 206 H Urine Color Urine Turbidity Urine pH Ur Specific Dickens Urine Protein Urine Glucose (UA) Urine Ketones Urine Blood Urine Nitrite Urine Bilirubin Urine Urobilinogen Ur Leukocyte Esterase Urine WBC (Auto) Urine RBC (Auto) U Epithel Cells (Auto) Urine Mucus Urine Yeast (Budding) Blood Type Antibody Screen
[2021-12-15] MEDS ORDERED: miSOPROStol 25 MCG TAB PO SCH (12:00)
[2021-12-15] MEDS: LACTATED RINGERS 1,000 ML IV SCH ×3 (12:24→22:30)
[2021-12-15] MEDS ORDERED: NALOXONE 2 MG/2 ML INJ IV PRN (14:18)
[2021-12-15] MEDS ORDERED: ePHEDrine SULFATE 50 MG/1 ML INJ IV PRN (14:18)
--- NOTE | 2021-12-15 14:27 | Event Note ---
Date: 12/15/21 SVE /-3/BBOW.
[2021-12-15] MEDS ORDERED: fentaNYL-BUPIV 2 MCG/ML-0.125% 200 MCG/100 ML BAG EPIDURAL SCH (15:00)
--- NOTE | 2021-12-15 15:13 | Progress Note ---
Labor Epidural - Labor Epidural Start Time: 13:48 Stop Time: 14:09 Performed by:: CUAUHTEMOC ZAPIEN Procedure: Patient is requesting epidural for labor pain. H&P and labs reviewed. Procedure explained, questions answered, consent obtained. Patient placed in sitting position with monitors applied. Timeout performed immediately before start of procedure. Prep/drape in usual sterile fashion. Skin localized 3 mL 1% lidocaine at L[3]-L[4] interspace. 17-gauge Touhy epidural needle advanced to AUNG with saline at [8] cm. No blood/CSF noted via epidural needle. Epidural catheter advanced to [12] cm. Negative aspiration for blood and CSF via catheter, negative response to test dose 3 ml 1.5% lidocaine w/ Epi. Sterile dressing applied followed by tape reinforcement. Patient tolerated procedure well. No immediate complications noted.
--- NOTE | 2021-12-15 15:16 | Anesthesia Consultation ---
Anesthesia Consult and Med Hx Date of service: 12/15/21 - Airway Anesthetic Teeth Evaluation: Good ROM Head & Neck: Adequate Mental/Hyoid Distance: Adequate Mallampati Class: Class II Intubation Access Assessment: Probably Good - Pulmonary Exam CTA: Yes - Cardiac Exam Cardiac Exam: RRR - Pre-Operative Health Status ASA Pre-Surgery Classification: ASA3 Proposed Anesthetic Plan: Epidural (Notes 80 oh) - Pulmonary Hx Smoking: Yes Hx Asthma: Yes Hx Respiratory Symptoms: No SOB: No COPD: No Hx Pneumonia: No Hx Sleep Apnea: No - Cardiovascular System Hx Hypertension: Yes (This) Hx Coronary Artery Disease: No Hx Heart Attack/AMI: No Hx Angina: No Hx Percutaneous Transluminal Coronary Angioplasty (PTCA): No Hx Cardia Arrhythmia: No Hx Pacemaker: No Hx Internal Defibrillator: No Hx Valvular Heart Disease: No Hx Heart Murmur: No Hx Peripheral Vascular Disease: No - Central Nervous System Hx Neuromuscular Disorder: No Hx Seizures: No CVA: No Hx Back Pain: No Hx Psychiatric Problems: No - Gastrointestinal Hx Ulcer: No Hx Gastroesophageal Reflux Disease: Yes - Endocrine Hx Renal Disease: No Hx End Stage Renal Disease: No Hx Cirrhosis: No Hx Liver Disease: No Hx Insulin Dependent Diabetes: No Hx Non-Insulin Dependent Diabetes: Yes Hx Hypothyroidism: No Hx Hyperthyroidism: No - Hematic Hx Anemia: No Hx Sickle Cell Disease: No - Other Systems Hx Alcohol Use: No Hx Substance Use: No Hx Cancer: No Hx Obesity: Yes
[2021-12-15] MEDS ORDERED: LIDOCAINE (2%) 20 MG/1 ML VIAL 20 ML MDV INFILTRATI ONE (15:54)
[2021-12-15] MEDS ORDERED: LANOLIN/ZINC/DIMETHICONE (LANSINOH) 7 GM TP PRN ×2 (16:56)
[2021-12-15] MEDS ORDERED: HYDROcodone/ACETAMINOPHEN 5-325 MG TAB PO PRN (16:56)
[2021-12-15] MEDS ORDERED: BENZOCAINE/MENTHOL 20/0.5% TOP SPRAY 56 GM TP PRN (16:56)
--- NOTE | 2021-12-15 17:11 | Procedure Note ---
OB Delivery Note - Delivery Date of Delivery: 12/15/21 Surgeon: SISI ESPINO Estimated blood loss: 300cc - Vaginal Delivery presentation: vertex Delivery position: OP Intrapartum events: none, preeclampsia, other(please specify) (gestational diabetes) Delivery induction: misoprostol Delivery monitor: external FHT, external uterine Route of delivery: Delivery placenta: spontaneous Delivery cord: 3 umbilical vessels Episiotomy: none Delivery laceration: 2nd degree Delivery repair: vicryl Anesthesia: local, epidural Delivery comments: Spontaneous vaginal delivery at 15:48 of liveborn male infant weighing 8 lb. over 2nd degree perineal laceration with apgars of 8/9. was atraumatic; baby cried immediately after . Baby placed on mom's chest as soon as he was born; baby dried with warm blankets and suctioned with bulb syringe. Delayed cord clamping. 3 vessel cord double clamped and cut and baby taken to radiant warmer for further suctioning. Spontaneous delivery of intact placenta and membranes at 15:51. EBL 300 cc. Pitocin to IV fluids after delivery of placenta. 2nd degree perineal laceration repaired with 2-0 and 3-0 vicryl in usual sterile fashion. No other lacerations noted. Vaginal sweep negative. Mother and baby stable in birthing.
--- NOTE | 2021-12-15 17:31 | Event Note ---
Date: 12/15/21 Patient with bradycardia. Patient states she had SOB and fatigue last 2 weeks of her . CXR, EKG, and MD hospitalist consult ordered. Informed Dr. Nova of above. Also informed patient of above.
--- NOTE | 2021-12-15 17:52 | XRay Report ---
CHEST 1 VIEW 12/15/2021 4:22 PM INDICATION / CLINICAL INFORMATION: Shortness of breath and bradycardia. COMPARISON: None available. FINDINGS: SUPPORT DEVICES: None. HEART / MEDIASTINUM: The heart size and pulmonary vasculature are normal. LUNGS / PLEURA: No significant pulmonary or pleural abnormality. No pneumothorax. ADDITIONAL FINDINGS: No significant additional findings. IMPRESSION: No acute findings. Signer Name: Jose Sahu MD Signed: 12/15/2021 5:47 PM Workstation Name: [id number]
[2021-12-15] MEDS ORDERED: WITCH HAZEL/ GLYCERIN PAD TP PRN (18:00)
[2021-12-15] MEDS: IBUPROFEN 600 MG TAB PO SCH (18:09)
[2021-12-15] MEDS ORDERED: LORazepam 2 MG/ML VIAL IV ONE (18:48)
[2021-12-15] MEDS ORDERED: MAGNESIUM SULFATE 40GM/1000ML 40 GM/1,000 ML BAG IV SCH (18:54)
--- NOTE | 2021-12-15 19:05 | Event Note ---
Date: 12/15/21 Was called to patient's room. Patient reports "chills." Patient denies headache, visual disturbance, nausea or vomiting. Patient is alert and oriented, talking, pleasant. Patient is visibly shaking, states she does not feel cold. Temp 97.3 orally. Blood glucose is 95. Brisk reflexes and + clonus noted on exam. Consulted with Dr. Nova re: above. Ativan 2 mg IV given per Dr. Nova's order. Magnesium Sulfate ordered and patient to be transferred back to L&D to receive magnesium sulfate. Repeat CBC and CMP ordered.
[2021-12-15] MEDS ORDERED: CARBOPROST TROMETHAMINE 250 MCG/1 ML INJ IM ONE ×2 (20:46→20:50)
--- NOTE | 2021-12-15 20:46 | Ultrasound Report ---
ULTRASOUND PELVIS INDICATION / CLINICAL INFORMATION: Check for retained POC. TECHNIQUE: Transabdominal. Duplex Color Doppler used: Yes. COMPARISON: None available FINDINGS: UTERUS: The uterus is mildly enlarged consistent with status. Endometrium measures 1 cm in thickness. Endometrium is mildly heterogeneous as expected in a uterus. Uterine parenchym a is mildly heterogeneous. With Doppler evaluation and do not see any hypervascularity within the end ometrium to suggest retained products of conception. The adnexa were not evaluated as this was a limited exam. IMPRESSION: 1. No sonographic evidence to suggest retained products of conception within the uterus. The overall appearance of the uterus is consistent with status. Signer Name: Deborah Ferraro MD Signed: 12/15/2021 8:41 PM Workstation Name: [id number]
[2021-12-15] MEDS ORDERED: DIPHENOXYLATE/ATROPINE TAB PO PRN (20:48)
[2021-12-15 21:00] LABS: Basophils % (Auto) 0.2 % (0.0-1.8); Eosinophils % (Auto) 0.1 % (0.0-4.3); Hematocrit 32.6 % (30.3-42.9); Hemoglobin 10.9 gm/dl (10.1-14.3); Lymphocytes % (Auto) 8.8 % (13.4-35.0); Mean Corpuscular HGB Conc 34 % (30-34); Mean Corpuscular Volume 94 fl (79-97); Monocytes # (Auto) 0.7 K/mm3 (0.0-0.8); Monocytes % (Auto) 5.9 % (0.0-7.3); Platelet Count 212 K/mm3 (140-440); Red Blood Count 3.48 M/mm3 (3.65-5.03); Red Cell Distribution Width 13.6 % (13.2-15.2)
[2021-12-15] MEDS ORDERED: OXYTOCIN DRIP 30 UNITS/500 ML BAG IV SCH (21:00)
[2021-12-15] MEDS ORDERED: LACTATED RINGERS 1,000 ML ONE (21:16)
[2021-12-15 21:20] LABS: Alanine Aminotransferase 27 units/L (7-56); Albumin 3.2 g/dL (3.9-5); Blood Urea Nitrogen 9 mg/dL (7-17); Calcium 8.2 mg/dL (8.4-10.2); Hemolysis Index 9
[2021-12-15 21:24] LABS: BUN/Creatinine Ratio 13
[2021-12-16] MEDS ORDERED: METHYLERGONOVINE MALEATE 0.2 MG/ML VIAL IM ONE (00:18)
--- NOTE | 2021-12-16 00:23 | Event Note ---
Date: 12/16/21 Called to room for "trickle" of blood from vagina with fundal massage. Patient has previously received Pitocin, cytotec, and Hemabate for uterine atony. Fundus palpates firm; small amount of lochia noted with massage of fundus. No clots noted. Speculum placed in vagina and no cervical lacerations and no vaginal lacerations noted. Perineal stitches intact. Vital signs stable. Hemoglobin 10.9. Hematocrit 32.6. Repeat H&H ordered. Patient is receiving magnesium sulfate due to preeclampsia with severe features. Called and consulted with Dr. Nova re: all of the above. Dr. Nova orders to give patient IM Methergine 0.2 mg and then to put patient on oral methergine 0.2 mg po every 8 hours. These orders were put in. Patient and patient's nurses notified of new orders.
[2021-12-16 01:20] LABS: Hematocrit 29.8 % (30.3-42.9)
--- NOTE | 2021-12-16 05:59 | Consultation ---
History of Present Illness - Reason for Consult Consult date: 12/15/21 Medical management Requesting physician: NEGRA BERMUDEZ - History of Present Illness 26-year-old -0-0-1 at 38 0.6 weeks with EDC 12/22/2021 presents with headache visual disturbances and elevated blood pressure at term. Plan is for admission for induction of labor for preeclampsia. dated by 7-week ultrasound. GBS positive Marginal sent to previa resolved on ultrasound dated 10/02/2021 Gestational diabetes on metformin 500 mg p.o. nightly macrosomia suspected with AC in the 90th percentile on ultrasound 10/02/2021: Repeat ultrasound in OB triage with EFW within normal limits 12/13/2021 at 2900 g Past History Past Medical History: other (GDM, reactive airway disease in childhood) Past Surgical History: no surgical history Family/Genetic History: none Social history: no significant social history - Obstetrical History Expected Date of Delivery: 12/22/21 Actual Gestation: 38 Week(s) 6 Day(s) : 2 Para: 1 #1 Gender: Male year: 21 Birthweight: 3.6 kg Method of Delivery: Vaginal Gestational age at delivery: 39 Complications: none Past History Social history: no significant social history Medications and Allergies Allergies Allergy/AdvReac Type Severity Reaction Status Date / Time No Known Allergies Allergy Unverified 10/01/19 19:29 Home Medications Medication Instructions Recorded Confirmed Last Taken Type Vit-Fe Fumar-FA [ 1 tab PO DAILY 03/02/20 03/02/20 03/02/20 10:00 History Vitamin] Active Meds: Active Medications Hydrocodone Bitart/Acetaminophen (Hydrocodone/Acetaminophen 5-325 Mg Tab) 2 each PO Q6H PRN PRN Reason: Pain, Moderate (4-6) Benzocaine/Menthol (Benzocaine/Menthol 20/0.5% Top Stover 56 Gm) 1 spray TP PRN PRN PRN Reason: Episiotomy Pain Last Admin: 12/15/21 18:09 Dose: 1 spray Diphenoxylate HCl/Atropine (Diphenoxylate/Atropine Tab) 1 tab PO Q6H PRN PRN Reason: Diarrhea Last Admin: 12/15/21 21:22 Dose: 1 tab Docusate Sodium (Docusate Sodium 100 Mg Cap) 100 mg PO BID BLANCA Ferrous Sulfate (Ferrous Sulfate 325 Mg Tab) 325 mg PO BID BLANCA Magnesium Sulfate (Magnesium Sulfate 40gm/1000ml) 40 gm in 1,000 mls @ 25 mls/hr IV DIRECT BLANCA Last Admin: 12/15/21 22:29 Dose: 1 gm/hr, 25 mls/hr Oxytocin/Sodium Chloride (Pitocin/Ns 30 Unit/500ml) 30 units in 500 mls @ 40 mls/hr IV TITR BLANCA; Protocol Last Admin: 12/15/21 21:30 Dose: 999 ml/hr, 999 mls/hr Lactated Ringer's (Lactated Ringers) 1,000 mls @ 75 mls/hr IV DIRECT BLANCA Last Admin: 12/15/21 22:30 Dose: 75 mls/hr Ibuprofen (Ibuprofen 600 Mg Tab) 600 mg PO Q6H [facility] Last Admin: 12/15/21 18:09 Dose: 600 mg Methylergonovine Maleate (Methylergonovine 0.2 Mg Tablet) 0.2 mg PO Q8H BLANCA Stop: 12/17/21 07:01 Multi-Ingredient Ointment (Lanolin/Zinc/Dimethicone (Lansinoh) 7 Gm) 1 applic TP PRN PRN PRN Reason: Sore Nipples Sodium Chloride (Sodium Chloride 0.9% 10 Ml Flush Syringe) 10 ml IV PRN NR Stop: 12/16/21 23:59 Witch Ginny/Glycerin (Witch Ginny/ Glycerin Pad) 1 each TP PRN PRN PRN Reason: Hemorrhoid/cleansing/soothing Last Admin: 12/15/21 18:10 Dose: 1 each Exam - Constitutional Vitals: Temp Pulse Resp BP Pulse Ox 98.6 F 86 18 128/65 98 12/16/21 03:43 12/16/21 05:51 12/15/21 07:16 12/16/21 05:32 12/16/21 05:51 General appearance: Present: no acute distress, well-nourished - EENT Eyes: Present: PERRL ENT: hearing intact, clear oral mucosa - Neck Neck: Present: supple, normal ROM - Respiratory Respiratory effort: normal Respiratory: bilateral: CTA - Cardiovascular Heart rate: 52 Rhythm: regular Heart Sounds: Present: S1 & S2. Absent: rub, click - Extremities Extremities: pulses symmetrical, No edema Peripheral Pulses: within normal limits - Abdominal General gastrointestinal: Present: soft, non-tender, non-distended, normal bowel sounds Female genitourinary: Present: normal - Rectal Rectal Exam: deferred - Integumentary Integumentary: Present: clear, warm, dry - Musculoskeletal Musculoskeletal: gait normal, strength equal bilaterally - Psychiatric Psychiatric: appropriate mood/affect, intact judgment & insight - Neurologic Neurologic: CNII-XII intact, moves all extremities HEART Score - HEART Score History: Slightly suspicious EKG: Normal Age: < 45 Risk factors: No known risk factors - Critical Actions Critical Actions: 0-3 pts:0.9-1.7%risk of adverse cardiac event.Candidate for discharge Results - Labs CBC & Chem 7: 12/16/21 01:02 12/15/21 20:29 Labs: Abnormal lab results 12/15/21 12/15/21 12/15/21 Range/Units 06:55 17:32 20:29 WBC (4.5-11.0) K/mm3 RBC (3.65-5.03) M/mm3 Hgb (10.1-14.3) gm/dl Hct (30.3-42.9) % Lymph % (Auto) (13.4-35.0) % Lymph # (Auto) (1.2-5.4) K/mm3 Seg Neutrophils % (40.0-70.0) % Seg Neutrophils # (1.8-7.7) K/mm3 Sodium 135 L (137-145) mmol/L Carbon Dioxide 21 L (22-30) mmol/L POC Glucose 68 L (70-105) mg/dL Calcium 8.2 L (8.4-10.2) mg/dL Magnesium (1.7-2.3) mg/dL Total Protein 5.0 L (6.3-8.2) g/dL Albumin 3.2 L (3.9-5) g/dL TSH 5.820 H (0.270-4.200) mlU/mL 12/15/21 12/16/21 12/16/21 Range/Units 20:30 01:02 01:02 WBC 11.4 H (4.5-11.0) K/mm3 RBC 3.48 L (3.65-5.03) M/mm3 Hgb 10.0 L (10.1-14.3) gm/dl Hct 29.8 L (30.3-42.9) % Lymph % (Auto) 8.8 L (13.4-35.0) % Lymph # (Auto) 1.0 L (1.2-5.4) K/mm3 Seg Neutrophils % 85.0 H (40.0-70.0) % Seg Neutrophils # 9.7 H (1.8-7.7) K/mm3 Sodium (137-145) mmol/L Carbon Dioxide (22-30) mmol/L POC Glucose (70-105) mg/dL Calcium (8.4-10.2) mg/dL Magnesium 2.60 H (1.7-2.3) mg/dL Total Protein (6.3-8.2) g/dL Albumin (3.9-5) g/dL TSH (0.270-4.200) mlU/mL Assessment and Plan - Patient Problems (1) Sinus bradycardia Current Visit: Yes Status: Acute Plan to address problem: Asymptomatic IV fluids and observation No sofia blocking agents like metoprolol or carvedilol (2) Gestational diabetes Current Visit: Yes Status: Acute Qualifiers: Gestational diabetes mellitus control: diet-controlled Plan to address problem: Diet and Humalog SQ as needed Check hemoglobin A1c Continue metformin (3) Anemia Current Visit: No Status: Chronic Qualifiers: Anemia type: unspecified type Qualified Code(s): D64.9 - Anemia, unspecified Plan to address problem: Anemia work-up (4) DVT prophylaxis Current Visit: Yes Status: Acute Plan to address problem: On SCDs and GI prophylaxis (5) Advance care planning Current Visit: Yes Status: Acute Plan to address problem: Disease education conducted, care plan discussed, diagnosis discussed, prognosis discussed. Patient is full code. Patient acknowledged understanding and agreement with care plan. +30 minutes.
[2021-12-16] MEDS: IBUPROFEN 600 MG TAB PO SCH ×3 (06:53→21:14)
[2021-12-16] MEDS ORDERED: METHYLERGONOVINE 0.2 MG TABLET PO SCH (07:00)
[2021-12-16 07:32] LABS: Hematocrit 29.4 % (30.3-42.9); Hemoglobin 10.3 gm/dl (10.1-14.3)
[2021-12-16 08:00] LABS: % Iron Saturation 28.61 %
--- NOTE | 2021-12-16 08:55 | Post Anesthesia Evaluation ---
- Post Anesthesia Evaluation Patient Participated: Yes Airway Patent: Yes Stable Respiratory Function: Yes Nausea/Vomiting: No Temp > 96.8F: Yes Pain Manageable: Yes Adequeate Hydration: Yes Anesthesia Complications: No Block Receding Appropriately: Yes Patient on Ventilator: No
[2021-12-16] MEDS ORDERED: fentaNYL 100 MCG/2 ML INJ IV SCH (09:00)
[2021-12-16] MEDS: miSOPROStol 200 MCG TAB PR SCH ×2 (09:28→09:45)
--- NOTE | 2021-12-16 09:43 | Progress Note ---
Assessment and Plan day #1, with preeclampsia with BP normal at this time, unclear source of vag bleeding, possible lower uterine segment but same not active at this time. Pt has received methergine x1 earlier this morning and BP still wnl. 1. Bedside u/sound repeated by radiology and pt given IV fentanyl and bimanual exam redone; Cervix swollen, but canal closed and u/s verified EMS thin with the thickest portion in the cervical region measuring 1.3cm 2. Will stop methergine with preeclampsia diagnosis 3. Cytotec 800mcg given and retained clots and 1cm fragment of tissue sent to pathology 4. Will treat with ancef [id number] and pt may need augmentin x5days 5. Will check cbc with diff later today 6. Continue mag sulfate x24hrs Plan of care discussed with pt and nurse present. All questions encouraged and answered. Subjective Date of service: 12/16/21 Principal diagnosis: PPD#1 on mag sulfate for preeclampsia Interval history: pt has no chest pain, shortness of breath for feeling the "shakes or jitters". Pt said she felt warm and was told by the nurse that she has no fever. Denies fever or chills. Mag sulfate at 1gm/hr and pt on methergine 0.2mg every 8hrs for vag bleed. Objective - Constitutional Vitals: Vital Signs - 12hr 12/15/21 12/15/21 12/15/21 22:00 22:31 22:35 Temperature 97.5 F L Pulse Rate 55 L 51 L Respiratory Rate Blood Pressure 114/65 O2 Sat by Pulse 98 Oximetry O2 Sat by Pulse Oximetry [ Bilateral Throughout] O2 Sat by Pulse Oximetry [ Throughout] 12/15/21 12/15/21 12/15/21 22:40 22:45 22:50 Temperature Pulse Rate 51 L 54 L 60 Respiratory Rate Blood Pressure O2 Sat by Pulse 98 97 98 Oximetry O2 Sat by Pulse Oximetry [ Bilateral Throughout] O2 Sat by Pulse Oximetry [ Throughout] 12/15/21 12/15/21 12/15/21 22:55 23:00 23:05 Temperature Pulse Rate 51 L 60 47 L Respiratory Rate Blood Pressure O2 Sat by Pulse 97 98 98 Oximetry O2 Sat by Pulse Oximetry [ Bilateral Throughout] O2 Sat by Pulse Oximetry [ Throughout] 12/15/21 12/15/21 12/15/21 23:10 23:15 23:20 Temperature Pulse Rate 53 L 49 L 52 L Respiratory Rate Blood Pressure O2 Sat by Pulse 100 98 98 Oximetry O2 Sat by Pulse Oximetry [ Bilateral Throughout] O2 Sat by Pulse Oximetry [ Throughout] 12/15/21 12/15/21 12/15/21 23:25 23:30 23:31 Temperature Pulse Rate 51 L 55 L 52 L Respiratory Rate Blood Pressure 148/76 O2 Sat by Pulse 97 99 Oximetry O2 Sat by Pulse Oximetry [ Bilateral Throughout] O2 Sat by Pulse Oximetry [ Throughout] 12/15/21 12/15/21 12/15/21 23:35 23:40 23:45 Temperature Pulse Rate 52 L 52 L 52 L Respiratory Rate Blood Pressure O2 Sat by Pulse 99 99 100 Oximetry O2 Sat by Pulse Oximetry [ Bilateral Throughout] O2 Sat by Pulse Oximetry [ Throughout] 12/15/21 12/15/21 12/16/21 23:50 23:55 00:00 Temperature Pulse Rate 57 L 52 L 55 L Respiratory Rate Blood Pressure O2 Sat by Pulse 97 98 99 Oximetry O2 Sat by Pulse Oximetry [ Bilateral Throughout] O2 Sat by Pulse Oximetry [ Throughout] 12/16/21 12/16/21 12/16/21 00:05 00:10 00:15 Temperature Pulse Rate 55 L 63 61 Respiratory Rate Blood Pressure O2 Sat by Pulse 98 95 98 Oximetry O2 Sat by Pulse Oximetry [ Bilateral Throughout] O2 Sat by Pulse Oximetry [ Throughout] 12/16/21 12/16/21 12/16/21 00:20 00:25 00:30 Temperature Pulse Rate 55 L 52 L 54 L Respiratory Rate Blood Pressure O2 Sat by Pulse 99 98 99 Oximetry O2 Sat by Pulse Oximetry [ Bilateral Throughout] O2 Sat by Pulse Oximetry [ Throughout] 12/16/21 12/16/21 12/16/21 00:31 00:35 00:36 Temperature 97.7 F Pulse Rate 49 L 50 L Respiratory Rate Blood Pressure 136/72 O2 Sat by Pulse 100 Oximetry O2 Sat by Pulse Oximetry [ Bilateral Throughout] O2 Sat by Pulse Oximetry [ Throughout] 12/16/21 12/16/21 12/16/21 00:40 00:45 00:50 Temperature Pulse Rate 55 L 55 L 54 L Respiratory Rate Blood Pressure O2 Sat by Pulse 99 98 98 Oximetry O2 Sat by Pulse Oximetry [ Bilateral Throughout] O2 Sat by Pulse Oximetry [ Throughout] 12/16/21 12/16/21 12/16/21 00:55 01:00 01:05 Temperature Pulse Rate 52 L 56 L 56 L Respiratory Rate Blood Pressure O2 Sat by Pulse 98 98 98 Oximetry O2 Sat by Pulse Oximetry [ Bilateral Throughout] O2 Sat by Pulse Oximetry [ Throughout] 12/16/21 12/16/21 12/16/21 01:10 01:15 01:20 Temperature Pulse Rate 50 L 51 L 56 L Respiratory Rate Blood Pressure O2 Sat by Pulse 98 98 98 Oximetry O2 Sat by Pulse Oximetry [ Bilateral Throughout] O2 Sat by Pulse Oximetry [ Throughout] 12/16/21 12/16/21 12/16/21 01:25 01:30 01:31 Temperature Pulse Rate 57 L 55 L 55 L Respiratory Rate Blood Pressure 141/74 O2 Sat by Pulse 98 98 Oximetry O2 Sat by Pulse Oximetry [ Bilateral Throughout] O2 Sat by Pulse Oximetry [ Throughout] 12/16/21 12/16/21 12/16/21 01:35 01:40 01:45 Temperature Pulse Rate 73 70 60 Respiratory Rate Blood Pressure O2 Sat by Pulse 99 100 98 Oximetry O2 Sat by Pulse Oximetry [ Bilateral Throughout] O2 Sat by Pulse Oximetry [ Throughout] 12/16/21 12/16/21 12/16/21 01:50 01:55 02:00 Temperature Pulse Rate 59 L 58 L 61 Respiratory Rate Blood Pressure O2 Sat by Pulse 98 98 97 Oximetry O2 Sat by Pulse Oximetry [ Bilateral Throughout] O2 Sat by Pulse Oximetry [ Throughout] 12/16/21 12/16/21 12/16/21 02:05 02:10 02:15 Temperature Pulse Rate 62 61 68 Respiratory Rate Blood Pressure O2 Sat by Pulse 97 97 98 Oximetry O2 Sat by Pulse Oximetry [ Bilateral Throughout] O2 Sat by Pulse Oximetry [ Throughout] 12/16/21 12/16/21 12/16/21 02:20 02:25 02:30 Temperature Pulse Rate 60 61 58 L Respiratory Rate Blood Pressure O2 Sat by Pulse 97 96 97 Oximetry O2 Sat by Pulse Oximetry [ Bilateral Throughout] O2 Sat by Pulse Oximetry [ Throughout] 12/16/21 12/16/21 12/16/21 02:31 02:35 02:40 Temperature Pulse Rate 60 60 66 Respiratory Rate Blood Pressure 121/65 O2 Sat by Pulse 97 97 Oximetry O2 Sat by Pulse Oximetry [ Bilateral Throughout] O2 Sat by Pulse Oximetry [ Throughout] 12/16/21 12/16/21 12/16/21 02:45 02:50 02:55 Temperature Pulse Rate 69 62 57 L Respiratory Rate Blood Pressure O2 Sat by Pulse 97 98 98 Oximetry O2 Sat by Pulse Oximetry [ Bilateral Throughout] O2 Sat by Pulse Oximetry [ Throughout] 12/16/21 12/16/21 12/16/21 03:00 03:05 03:10 Temperature Pulse Rate 62 66 66 Respiratory Rate Blood Pressure O2 Sat by Pulse 97 97 99 Oximetry O2 Sat by Pulse Oximetry [ Bilateral Throughout] O2 Sat by Pulse Oximetry [ Throughout] 12/16/21 12/16/21 12/16/21 03:15 03:20 03:25 Temperature Pulse Rate 65 68 61 Respiratory Rate Blood Pressure O2 Sat by Pulse 98 98 98 Oximetry O2 Sat by Pulse Oximetry [ Bilateral Throughout] O2 Sat by Pulse Oximetry [ Throughout] 12/16/21 12/16/21 12/16/21 03:30 03:31 03:35 Temperature Pulse Rate 66 61 63 Respiratory Rate Blood Pressure 123/59 O2 Sat by Pulse 97 99 Oximetry O2 Sat by Pulse Oximetry [ Bilateral Throughout] O2 Sat by Pulse Oximetry [ Throughout] 12/16/21 12/16/21 12/16/21 03:40 03:43 03:45 Temperature 98.6 F Pulse Rate 65 65 Respiratory Rate Blood Pressure O2 Sat by Pulse 98 99 Oximetry O2 Sat by Pulse Oximetry [ Bilateral Throughout] O2 Sat by Pulse Oximetry [ Throughout] 12/16/21 12/16/21 12/16/21 03:50 03:55 04:00 Temperature Pulse Rate 72 74 72 Respiratory Rate Blood Pressure O2 Sat by Pulse 97 97 97 Oximetry O2 Sat by Pulse Oximetry [ Bilateral Throughout] O2 Sat by Pulse Oximetry [ Throughout] 12/16/21 12/16/21 12/16/21 04:05 04:10 04:15 Temperature Pulse Rate 69 70 81 Respiratory Rate Blood Pressure O2 Sat by Pulse 98 97 99 Oximetry O2 Sat by Pulse Oximetry [ Bilateral Throughout] O2 Sat by Pulse Oximetry [ Throughout] 12/16/21 12/16/21 12/16/21 04:20 04:25 04:30 Temperature Pulse Rate 75 84 81 Respiratory Rate Blood Pressure O2 Sat by Pulse 99 99 99 Oximetry O2 Sat by Pulse Oximetry [ Bilateral Throughout] O2 Sat by Pulse Oximetry [ Throughout] 12/16/21 12/16/21 12/16/21 04:35 04:40 04:45 Temperature Pulse Rate 88 80 88 Respiratory Rate Blood Pressure O2 Sat by Pulse 99 99 99 Oximetry O2 Sat by Pulse Oximetry [ Bilateral Throughout] O2 Sat by Pulse Oximetry [ Throughout] 12/16/21 12/16/21 12/16/21 04:50 04:51 04:56 Temperature Pulse Rate 79 86 83 Respiratory Rate Blood Pressure O2 Sat by Pulse 88 98 98 Oximetry O2 Sat by Pulse Oximetry [ Bilateral Throughout] O2 Sat by Pulse Oximetry [ Throughout] 12/16/21 12/16/21 12/16/21 05:01 05:06 05:11 Temperature Pulse Rate 78 80 76 Respiratory Rate Blood Pressure O2 Sat by Pulse 98 99 99 Oximetry O2 Sat by Pulse Oximetry [ Bilateral Throughout] O2 Sat by Pulse Oximetry [ Throughout] 12/16/21 12/16/21 12/16/21 05:16 05:21 05:26 Temperature Pulse Rate 82 79 78 Respiratory Rate Blood Pressure O2 Sat by Pulse 98 99 99 Oximetry O2 Sat by Pulse Oximetry [ Bilateral Throughout] O2 Sat by Pulse Oximetry [ Throughout] 12/16/21 12/16/21 12/16/21 05:31 05:32 05:36 Temperature Pulse Rate 74 74 77 Respiratory Rate Blood Pressure 128/65 O2 Sat by Pulse 100 99 Oximetry O2 Sat by Pulse Oximetry [ Bilateral Throughout] O2 Sat by Pulse Oximetry [ Throughout] 12/16/21 12/16/21 12/16/21 05:41 05:46 05:51 Temperature Pulse Rate 95 H 87 86 Respiratory Rate Blood Pressure O2 Sat by Pulse 99 99 98 Oximetry O2 Sat by Pulse Oximetry [ Bilateral Throughout] O2 Sat by Pulse Oximetry [ Throughout] 12/16/21 12/16/21 12/16/21 05:56 06:01 06:06 Temperature Pulse Rate 86 80 80 Respiratory Rate Blood Pressure O2 Sat by Pulse 98 99 99 Oximetry O2 Sat by Pulse Oximetry [ Bilateral Throughout] O2 Sat by Pulse Oximetry [ Throughout] 12/16/21 12/16/21 12/16/21 06:11 06:16 06:21 Temperature Pulse Rate 85 83 84 Respiratory Rate Blood Pressure O2 Sat by Pulse 98 99 98 Oximetry O2 Sat by Pulse Oximetry [ Bilateral Throughout] O2 Sat by Pulse Oximetry [ Throughout] 12/16/21 12/16/21 12/16/21 06:26 06:31 06:36 Temperature 98.2 F Pulse Rate 84 82 82 Respiratory Rate Blood Pressure 112/59 O2 Sat by Pulse 98 99 97 Oximetry O2 Sat by Pulse Oximetry [ Bilateral Throughout] O2 Sat by Pulse Oximetry [ Throughout] 12/16/21 12/16/21 12/16/21 06:41 06:46 06:51 Temperature Pulse Rate 87 87 82 Respiratory Rate Blood Pressure O2 Sat by Pulse 98 97 99 Oximetry O2 Sat by Pulse Oximetry [ Bilateral Throughout] O2 Sat by Pulse Oximetry [ Throughout] 12/16/21 12/16/21 12/16/21 06:56 07:01 07:06 Temperature Pulse Rate 81 75 70 Respiratory Rate Blood Pressure O2 Sat by Pulse 99 100 100 Oximetry O2 Sat by Pulse Oximetry [ Bilateral Throughout] O2 Sat by Pulse Oximetry [ Throughout] 12/16/21 12/16/21 12/16/21 07:11 07:16 07:21 Temperature Pulse Rate 67 73 80 Respiratory Rate Blood Pressure O2 Sat by Pulse 100 99 98 Oximetry O2 Sat by Pulse Oximetry [ Bilateral Throughout] O2 Sat by Pulse Oximetry [ Throughout] 12/16/21 12/16/21 12/16/21 07:26 07:31 07:36 Temperature Pulse Rate 88 85 81 Respiratory Rate Blood Pressure O2 Sat by Pulse 98 98 99 Oximetry O2 Sat by Pulse Oximetry [ Bilateral Throughout] O2 Sat by Pulse Oximetry [ Throughout] 12/16/21 12/16/21 12/16/21 07:41 07:46 07:48 Temperature Pulse Rate 77 76 78 Respiratory Rate Blood Pressure 122/78 O2 Sat by Pulse 98 99 Oximetry O2 Sat by Pulse Oximetry [ Bilateral Throughout] O2 Sat by Pulse Oximetry [ Throughout] 12/16/21 12/16/21 12/16/21 07:51 07:56 07:57 Temperature 97.9 F Pulse Rate 76 74 Respiratory 18 Rate Blood Pressure O2 Sat by Pulse 98 98 97 Oximetry O2 Sat by Pulse Oximetry [ Bilateral Throughout] O2 Sat by Pulse Oximetry [ Throughout] 12/16/21 12/16/21 12/16/21 07:58 08:01 08:06 Temperature Pulse Rate 74 72 Respiratory Rate Blood Pressure O2 Sat by Pulse 97 97 Oximetry O2 Sat by Pulse 97 Oximetry [ Bilateral Throughout] O2 Sat by Pulse 97 Oximetry [ Throughout] 12/16/21 12/16/21 12/16/21 08:11 08:16 08:21 Temperature Pulse Rate 75 71 70 Respiratory Rate Blood Pressure O2 Sat by Pulse 97 96 96 Oximetry O2 Sat by Pulse Oximetry [ Bilateral Throughout] O2 Sat by Pulse Oximetry [ Throughout] 12/16/21 12/16/21 12/16/21 08:25 08:26 08:31 Temperature Pulse Rate 67 65 65 Respiratory Rate Blood Pressure 115/56 O2 Sat by Pulse 91 95 96 Oximetry O2 Sat by Pulse Oximetry [ Bilateral Throughout] O2 Sat by Pulse Oximetry [ Throughout] 12/16/21 12/16/21 12/16/21 08:36 08:41 08:46 Temperature Pulse Rate 69 69 92 H Respiratory Rate Blood Pressure O2 Sat by Pulse 96 97 97 Oximetry O2 Sat by Pulse Oximetry [ Bilateral Throughout] O2 Sat by Pulse Oximetry [ Throughout] 12/16/21 12/16/21 12/16/21 08:51 08:56 09:01 Temperature Pulse Rate 69 70 69 Respiratory Rate Blood Pressure O2 Sat by Pulse 96 97 98 Oximetry O2 Sat by Pulse Oximetry [ Bilateral Throughout] O2 Sat by Pulse Oximetry [ Throughout] 12/16/21 12/16/21 12/16/21 09:06 09:11 09:16 Temperature Pulse Rate 66 66 72 Respiratory Rate Blood Pressure O2 Sat by Pulse 96 98 97 Oximetry O2 Sat by Pulse Oximetry [ Bilateral Throughout] O2 Sat by Pulse Oximetry [ Throughout] 12/16/21 12/16/21 12/16/21 09:17 09:22 09:27 Temperature Pulse Rate 70 91 H 77 Respiratory Rate Blood Pressure O2 Sat by Pulse 94 88 84 Oximetry O2 Sat by Pulse Oximetry [ Bilateral Throughout] O2 Sat by Pulse Oximetry [ Throughout] 12/16/21 12/16/21 12/16/21 09:31 09:32 09:37 Temperature Pulse Rate 70 68 68 Respiratory Rate Blood Pressure 123/61 O2 Sat by Pulse 97 98 Oximetry O2 Sat by Pulse Oximetry [ Bilateral Throughout] O2 Sat by Pulse Oximetry [ Throughout] 12/16/21 09:39 Temperature Pulse Rate 77 Respiratory Rate Blood Pressure O2 Sat by Pulse 93 Oximetry O2 Sat by Pulse Oximetry [ Bilateral Throughout] O2 Sat by Pulse Oximetry [ Throughout] General appearance: Present: no acute distress - Neck Neck: normal ROM - Respiratory Respiratory effort: normal - Cardiovascular Rhythm: regular Extremities: No edema - Gastrointestinal General gastrointestinal: Present: soft, non-tender - Genitourinary Female genitourinary: other (Fundus firm, however when pushed on, constant flow of dark brown secretion seen. Bimanual with cervix dilated 3-4cm and large clot approx 6x8cm removed and 1cm white piece of tissue. Sterile spec done and no vaginal lacerations or cervical laceration or active bleed thru cervix noted ) - Labs CBC & Chem 7: 12/16/21 06:53 12/15/21 20:29 Labs: Abnormal lab results 12/15/21 12/15/21 12/15/21 Range/Units 06:55 17:32 20:29 WBC (4.5-11.0) K/mm3 RBC (3.65-5.03) M/mm3 Hgb (10.1-14.3) gm/dl Hct (30.3-42.9) % Lymph % (Auto) (13.4-35.0) % Lymph # (Auto) (1.2-5.4) K/mm3 Seg Neutrophils % (40.0-70.0) % Seg Neutrophils # (1.8-7.7) K/mm3 Sodium 135 L (137-145) mmol/L Carbon Dioxide 21 L (22-30) mmol/L POC Glucose 68 L (70-105) mg/dL Calcium 8.2 L (8.4-10.2) mg/dL Magnesium (1.7-2.3) mg/dL Total Protein 5.0 L (6.3-8.2) g/dL Albumin 3.2 L (3.9-5) g/dL TSH 5.820 H (0.270-4.200) mlU/mL 12/15/21 12/16/21 12/16/21 Range/Units 20:30 01:02 01:02 WBC 11.4 H (4.5-11.0) K/mm3 RBC 3.48 L (3.65-5.03) M/mm3 Hgb 10.0 L (10.1-14.3) gm/dl Hct 29.8 L (30.3-42.9) % Lymph % (Auto) 8.8 L (13.4-35.0) % Lymph # (Auto) 1.0 L (1.2-5.4) K/mm3 Seg Neutrophils % 85.0 H (40.0-70.0) % Seg Neutrophils # 9.7 H (1.8-7.7) K/mm3 Sodium (137-145) mmol/L Carbon Dioxide (22-30) mmol/L POC Glucose (70-105) mg/dL Calcium (8.4-10.2) mg/dL Magnesium 2.60 H (1.7-2.3) mg/dL Total Protein (6.3-8.2) g/dL Albumin (3.9-5) g/dL TSH (0.270-4.200) mlU/mL 12/16/21 12/16/21 Range/Units 06:53 06:53 WBC (4.5-11.0) K/mm3 RBC (3.65-5.03) M/mm3 Hgb (10.1-14.3) gm/dl Hct 29.4 L (30.3-42.9) % Lymph % (Auto) (13.4-35.0) % Lymph # (Auto) (1.2-5.4) K/mm3 Seg Neutrophils % (40.0-70.0) % Seg Neutrophils # (1.8-7.7) K/mm3 Sodium (137-145) mmol/L Carbon Dioxide (22-30) mmol/L POC Glucose (70-105) mg/dL Calcium (8.4-10.2) mg/dL Magnesium 3.50 H (1.7-2.3) mg/dL Total Protein (6.3-8.2) g/dL Albumin (3.9-5) g/dL TSH (0.270-4.200) mlU/mL Medications & Allergies - Medications Allergies/Adverse Reactions: Allergies No Known Allergies Allergy (Unverified 10/01/19 19:29) Home Medications: Home Medications Medication Instructions Recorded Confirmed Last Taken Type Vit-Fe Fumar-FA [ 1 tab PO DAILY 03/02/20 03/02/20 03/02/20 10:00 History Vitamin] Active Medications: Generic Name Dose Route Start Last Admin Trade Name Freq PRN Reason Stop Dose Admin Hydrocodone Bitart/Acetaminophen 2 each 12/15/21 16:56 Hydrocodone/Acetaminophen 5-325 Mg Tab PO Q6H PRN Pain, Moderate (4-6) Benzocaine/Menthol 1 spray 12/15/21 16:56 12/15/21 18:09 Benzocaine/Menthol 20/0.5% Top [place] 56 Gm TP 1 spray PRN PRN Administration Episiotomy Pain Diphenoxylate HCl/Atropine 1 tab 12/15/21 20:48 12/15/21 21:22 Diphenoxylate/Atropine Tab PO 1 tab Q6H PRN Administration Diarrhea Docusate Sodium 100 mg 12/15/21 22:00 Docusate Sodium 100 Mg Cap PO BID BLANCA Fentanyl 100 mcg 12/16/21 09:00 12/16/21 09:12 Fentanyl 100 Mcg/2 Ml Inj IV 12/16/21 13:00 100 mcg ONCE@0900 BLANCA Administration Ferrous Sulfate 325 mg 12/15/21 22:00 Ferrous Sulfate 325 Mg Tab PO BID BLANCA Magnesium Sulfate 40 gm in 1,000 mls @ 25 mls/hr 12/15/21 18:54 12/15/21 22:29 Magnesium Sulfate 40gm/1000ml IV 12/16/21 22:29 1 gm/hr DIRECT BLANCA 25 mls/hr Administration 1 GM/HR Oxytocin/Sodium Chloride 30 units in 500 mls @ 40 mls/hr 12/15/21 21:00 12/15/21 21:30 Pitocin/Ns 30 Unit/500ml IV 999 ml/hr TITR BLANCA 999 mls/hr Administration Protocol Lactated Ringer's 1,000 mls @ 75 mls/hr 12/15/21 21:45 12/15/21 22:30 Lactated Ringers IV 75 mls/hr DIRECT BLANCA Administration Cefazolin Sodium 2 gm/ Sodium 100 mls @ 200 mls/hr 12/16/21 10:00 Chloride IV Q8H [facility] Protocol Ibuprofen 600 mg 12/15/21 17:00 12/16/21 06:53 Ibuprofen 600 Mg Tab PO 600 mg Q6H BLANCA Administration Misoprostol 800 mcg 12/16/21 09:00 12/16/21 09:28 Misoprostol 200 Mcg Tab MA 12/16/21 13:00 800 mcg ONCE@0900 BLANCA Administration Multi-Ingredient Ointment 1 applic 12/15/21 16:56 Lanolin/Zinc/Dimethicone (Lansinoh) 7 Gm TP PRN PRN Sore Nipples Sodium Chloride 10 ml 12/15/21 18:00 Sodium Chloride 0.9% 10 Ml Flush Syringe IV 12/16/21 23:59 PRN NR Witch Ginny/Glycerin 1 each 12/15/21 18:00 12/15/21 18:10 Witch Ginny/ Glycerin Pad TP 1 each PRN PRN Administration Hemorrhoid/cleansing/soothing HEART Score - HEART Score EKG: Normal Age: < 45 Risk factors: No known risk factors - Critical Actions Critical Actions: 0-3 pts:0.9-1.7%risk of adverse cardiac event.Candidate for discharge
--- NOTE | 2021-12-16 09:49 | Ultrasound Report ---
ULTRASOUND PELVIS INDICATION / CLINICAL INFORMATION: retained products follow up ppd1. TECHNIQUE: Transabdominal. Duplex Color Doppler used: Yes. COMPARISON: 12/15/2021 FINDINGS: Limited images of the uterus to evaluate for retained products of conception. Endometrium measures 1. 2 cm in thickness. No hypervascularity is identified within the endometrium to suggest retained produ cts of conception. IMPRESSION: Stable exam. No increased hypervascularity in the endometrium to suggest retained products of concept ion. Clinical correlation is recommended. Signer Name: Jason Thomson MD Signed: 12/16/2021 9:44 AM Workstation Name: [email or web address]
[2021-12-16] MEDS: DOCUSATE SODIUM 100 MG CAP PO SCH ×3 (10:28→21:14)
[2021-12-16] MEDS: FERROUS SULFATE 325 MG TAB PO SCH ×2 (10:29→21:14)
--- NOTE | 2021-12-16 17:08 | Event Note ---
Date: 12/16/21 I called the nurse Ms. Alvarez of room 2002[patient [facility]] Inquired about the patient, nurse reports that patient had vaginal delivery yest erday And patient has no new complaints, patient's bradycardia resolved Patient's heart rate last 12 hours ranging been 70s and 80s no symptoms Vital signs; Blood pressure 130/69, afebrile,Temperature 97.8, pulse 74/min, blood pressure 133/69 and O2 sats 99% Nurse reports that patient has no shortness of breath. Advised to continue current management We will follow the patient along with you Call us if she or the patient has any questions or concerns.
[2021-12-16] MEDS: LACTATED RINGERS 1,000 ML IV SCH (18:03)
[2021-12-16 21:06] LABS: Basophils % (Auto) 0.2 % (0.0-1.8); Eosinophils % (Auto) 0.3 % (0.0-4.3); Hematocrit 25.7 % (30.3-42.9); Hemoglobin 8.7 gm/dl (10.1-14.3); Lymphocytes # (Auto) 2.1 K/mm3 (1.2-5.4); Lymphocytes % (Auto) 21.6 % (13.4-35.0); Mean Corpuscular HGB Conc 34 % (30-34); Mean Corpuscular Volume 94 fl (79-97); Monocytes # (Auto) 0.7 K/mm3 (0.0-0.8); Monocytes % (Auto) 7.1 % (0.0-7.3); Platelet Count 184 K/mm3 (140-440); Red Blood Count 2.72 M/mm3 (3.65-5.03); Red Cell Distribution Width 13.3 % (13.2-15.2)
[2021-12-17] MEDS: IBUPROFEN 600 MG TAB PO SCH ×2 (05:40→10:50)
--- NOTE | 2021-12-17 09:18 | Discharge Summary ---
Providers - Providers Date of Admission: 12/14/21 18:00 Date of discharge: 12/17/21 (after 3pm) Attending physician: MD Apoorva CAMPBELL 12/15/21 17:18 Consult to Physician [CONS] Routine Comment: Consulting Provider: HENRY GIPSON Physician Instructions: Reason For Exam: Bradycardia, fatigue, SOB Primary care physician: NEGRA BERMUDEZ MD Hospitalization Reason for admission: other (Elevated blood pressure and contractions) Delivery: Episiotomy: none Laceration: none Other procedures: none complications: none Discharge diagnosis: IUP at term delivered [place] baby: male Condition at discharge: Good Disposition: HOME / SELF CARE / HOMELESS Plan - Discharge Medications Prescriptions: Ferrous Sulfate [Feosol 325 MG tab] 325 mg PO TID 30 Days #90 tablet Ibuprofen [Motrin 600 MG tab] 600 mg PO Q6H #40 tablet - Provider Discharge Summary Activity: no sex for 6 weeks, no heavy lifting 4 weeks, no strenuous exercise Diet: routine Instructions: routine Additional instructions: [] Smoking cessation referral if applicable(refer to patient education folder for contact #) [] Refer to [facility] Booklet Call your doctor immediately for: * Fever > 100.5 * Heavy vaginal bleeding ( >1 pad per hour) * Severe persistent headache * Shortness of breath * Reddened, hot, painful area to leg or breast * Drainage or odor from incision. * Keep incision clean and dry at all times and follow doctor's instructions regarding bathing/showering - Follow up plan Follow up: NEGRA BERMUDEZ MD [Primary Care Provider] - 7 Days (Assure to follow up for blood pressure check in 1week, then 5wks for PPV)
[2021-12-17] MEDS: FERROUS SULFATE 325 MG TAB PO SCH (10:50)
[2021-12-17] MEDS: DOCUSATE SODIUM 100 MG CAP PO SCH (10:50)
--- NOTE | 2021-12-17 13:28 | Progress Note ---
Assessment and Plan Assessment and plan: -- Sinus bradycardia/resolved Sinus bradycardia present on admission improved patient's heart rate is in 60s 70s and 80s last 24 hours asymptomatic continue current management. Hold off AV sofia blocking agents, follow-up with your primary care physician upon discharge -- Gestational diabetes/stable Blood sugars within range -- Anemia/Hb 8.7 Most recent hemoglobin is 8.7 Closely monitor, transfuse PRBC if Hb is less than 8 --DVT prophylaxis SCDs while resting Ambulate as tolerated --Morbidly obese :BMI 40.7 Advised dietary modification, exercise as tolerated and weight reduction when you are medically stable advance care planning Disease education conducted, care plan discussed, diagnosis discussed, prognosis discussed. Patient is full code. Patient acknowledged understanding and agreement with care plan. +30 minutes. Patient is medically stable for discharge Advised to follow-up with primary care physician for her medical needs Plan of care discussed in detail with the patient, spouse at the bedside as well as the nurse Thank you for this consultation Will sign off History Interval history: I had seen and examined the patient at the bedside in [facility] this morning Patient's chart and medications, tests and reports reviewed No new events reported by the nursing staff Patient feels better no new complaints anxious to go home Vital signs reviewed Bradycardia resolved heart rate in high 60s 70s and 80s last 2448 hrs. Hospitalist Physical - Constitutional Vitals: Temp Pulse Resp BP Pulse Ox 97.7 F 61 18 126/75 100 12/17/21 08:29 12/17/21 08:29 12/17/21 08:29 12/17/21 08:29 12/17/21 09:26 General appearance: Present: no acute distress, well-nourished, obese - EENT Eyes: Present: PERRL, EOM intact - Neck Neck: Present: supple, normal ROM - Respiratory Respiratory effort: normal Respiratory: bilateral: diminished, negative: rales, rhonchi, wheezing - Cardiovascular Rhythm: regular Heart Sounds: Present: S1 & S2 - Extremities Extremities: no ischemia, No edema - Abdominal General gastrointestinal: soft, non-tender, non-distended, normal bowel sounds - Integumentary Integumentary: Present: clear, warm - Psychiatric Psychiatric: appropriate mood/affect, cooperative - Neurologic Neurologic: CNII-XII intact, moves all extremities HEART Score - HEART Score EKG: Normal Age: < 45 Risk factors: No known risk factors - Critical Actions Critical Actions: 0-3 pts:0.9-1.7%risk of adverse cardiac event.Candidate for discharge Results - Labs CBC & Chem 7: 12/16/21 20:18 12/15/21 20:29 Labs: Laboratory Last Values WBC 9.6 K/mm3 (4.5-11.0) 12/16/21 20:18 RBC 2.72 M/mm3 (3.65-5.03) L 12/16/21 20:18 Hgb 8.7 gm/dl (10.1-14.3) L 12/16/21 20:18 Hct 25.7 % (30.3-42.9) L 12/16/21 20:18 MCV 94 fl (79-97) 12/16/21 20:18 MCH 32 pg (28-32) 12/16/21 20:18 MCHC 34 % (30-34) 12/16/21 20:18 RDW 13.3 % (13.2-15.2) 12/16/21 20:18 Plt Count 184 K/mm3 (140-440) 12/16/21 20:18 Lymph % (Auto) 21.6 % (13.4-35.0) 12/16/21 20:18 [place] % (Auto) 7.1 % (0.0-7.3) 12/16/21 20:18 Eos % (Auto) 0.3 % (0.0-4.3) 12/16/21 20:18 Baso % (Auto) 0.2 % (0.0-1.8) 12/16/21 20:18 Lymph # (Auto) 2.1 K/mm3 (1.2-5.4) 12/16/21 20:18 [place] # (Auto) 0.7 K/mm3 (0.0-0.8) 12/16/21 20:18 Eos # (Auto) 0.0 K/mm3 (0.0-0.4) 12/16/21 20:18 Baso # (Auto) 0.0 K/mm3 (0.0-0.1) 12/16/21 20:18 Seg Neutrophils % 70.8 % (40.0-70.0) H 12/16/21 20:18 Seg Neutrophils # 6.8 K/mm3 (1.8-7.7) 12/16/21 20:18 Sodium 135 mmol/L (137-145) L 12/15/21 20:29 Potassium 4.2 mmol/L (3.6-5.0) 12/15/21 20:29 Chloride 104.6 mmol/L (98-107) 12/15/21 20:29 Carbon Dioxide 21 mmol/L (22-30) L 12/15/21 20:29 Anion Gap 14 mmol/L 12/15/21 20:29 BUN 9 mg/dL (7-17) 12/15/21 20:29 Creatinine 0.7 mg/dL (0.6-1.2) 12/15/21 20:29 Estimated GFR > 60 ml/min 12/15/21 20:29 BUN/Creatinine Ratio 13 % 12/15/21 20:29 Glucose 91 mg/dL (65-100) 12/15/21 20:29 POC Glucose 75 mg/dL (70-105) 12/15/21 22:15 Uric Acid 5.2 mg/dL (3.5-7.6) 12/14/21 Unknown Calcium 8.2 mg/dL (8.4-10.2) L 12/15/21 20:29 Magnesium 3.60 mg/dL (1.7-2.3) H 12/16/21 20:18 Iron 117 ug/dL (37-170) 12/16/21 06:53 TIBC 409 mcg/dL (250-450) 12/16/21 06:53 % Saturation 28.61 % 12/16/21 06:53 Transferrin 353 mg/dl (192-382) 12/16/21 06:53 Total Bilirubin 0.30 mg/dL (0.1-1.2) 12/15/21 20:29 AST 26 units/L (5-40) 12/15/21 20:29 ALT 27 units/L (7-56) 12/15/21 20:29 Alkaline Phosphatase 104 units/L (35-129) 12/15/21 20:29 Lactate Dehydrogenase 206 units/L (91-180) H 12/14/21 Unknown Total Protein 5.0 g/dL (6.3-8.2) L 12/15/21 20:29 Albumin 3.2 g/dL (3.9-5) L 12/15/21 20:29 Albumin/Globulin Ratio 1.8 % 12/15/21 20:29 TSH 5.820 mlU/mL (0.270-4.200) H 12/15/21 17:32 Free T4 0.91 ng/dL (0.76-1.46) 12/15/21 20:29 Urine Color Yellow (Yellow) 12/14/21 Unknown Urine Turbidity Cloudy (Clear) 12/14/21 Unknown Urine pH 6.0 (5.0-7.0) 12/14/21 Unknown Ur Specific [place] 1.021 (1.003-1.030) 12/14/21 Unknown Urine Protein 30 mg/dl mg/dL (Negative) 12/14/21 Unknown Urine Glucose (UA) Neg mg/dL (Negative) 12/14/21 Unknown Urine Ketones Neg mg/dL (Negative) 12/14/21 Unknown Urine Blood Sm (Negative) 12/14/21 Unknown Urine Nitrite Neg (Negative) 12/14/21 Unknown Urine Bilirubin Neg (Negative) 12/14/21 Unknown Urine Urobilinogen < 2.0 mg/dL (<2.0) 12/14/21 Unknown Ur Leukocyte Esterase Lg (Negative) 12/14/21 Unknown Urine WBC (Auto) 106.0 /HPF (0.0-6.0) H 12/14/21 Unknown Urine RBC (Auto) 16.0 /HPF (0.0-6.0) 12/14/21 Unknown U Epithel Cells (Auto) 47.0 /HPF (0-13.0) H 12/14/21 Unknown Urine Mucus Few /HPF 12/14/21 Unknown Urine Yeast (Budding) 2+ /HPF 12/14/21 Unknown Blood Type O POSITIVE 12/14/21 21:00 Antibody Screen Negative 12/14/21 21:00 Active Medications - Current Medications Current Medications: Generic Name Dose Route Start Last Admin Trade Name Freq PRN Reason Stop Dose Admin Hydrocodone Bitart/Acetaminophen 2 each 12/15/21 16:56 Hydrocodone/Acetaminophen 5-325 Mg Tab PO Q6H PRN Pain, Moderate (4-6) Benzocaine/Menthol 1 spray 12/15/21 16:56 12/15/21 18:09 Benzocaine/Menthol 20/0.5% Top [place] 56 Gm TP 1 spray PRN PRN Administration Episiotomy Pain Diphenoxylate HCl/Atropine 1 tab 12/15/21 20:48 12/15/21 21:22 Diphenoxylate/Atropine Tab PO 1 tab Q6H PRN Administration Diarrhea Docusate Sodium 100 mg 12/15/21 22:00 12/17/21 10:50 Docusate Sodium 100 Mg Cap PO 100 mg BID BLANCA Administration Ferrous Sulfate 325 mg 12/15/21 22:00 12/17/21 10:50 Ferrous Sulfate 325 Mg Tab PO 325 mg BID BLANCA Administration Oxytocin/Sodium Chloride 30 units in 500 mls @ 40 mls/hr 12/15/21 21:00 12/15/21 21:30 Pitocin/Ns 30 Unit/500ml IV 999 ml/hr TITR BLANCA 999 mls/hr Administration Protocol Lactated Ringer's 1,000 mls @ 75 mls/hr 12/15/21 21:45 12/16/21 18:03 Lactated Ringers IV 75 mls/hr DIRECT BLANCA Administration Ibuprofen 600 mg 12/15/21 17:00 12/17/21 10:50 Ibuprofen 600 Mg Tab PO 600 mg Q6H BLANCA Administration Multi-Ingredient Ointment 1 applic 12/15/21 16:56 Lanolin/Zinc/Dimethicone (L[place]) 7 Gm TP PRN PRN Sore Nipples Witch Ginny/Glycerin 1 each 12/15/21 18:00 12/15/21 18:10 Witch Ginny/ Glycerin Pad TP 1 each PRN PRN Administration Hemorrhoid/cleansing/soothing
[2021-12-17 16:06] VITALS: BP 131/80
--- NOTE | 2021-12-18 11:59 | Electrocardiograph Report ---
[facility] Test Date: 2021-12-16 Test Time: 03:38:41 Pat Name: SAWYER HAWKDepartment: Room: 2138 Gender: F Family Practice Md: JODI : 1995 Requested By: SISI ESPINO Order Number: [id number] Reading MD: Yong Graves Measurements Intervals [place] Rate: 65 P: 16 WI: 169 QRS: 8 QRSD: 103 T: 32 QT: 409 QTc: 426 Interpretive Statements Sinus rhythm Poor R wave progression Nonspecific ST-T changes No previous ECG available for comparison Electronically Signed On 12-18-2021 11:58:50 EDT by Yong Graves
== END 2021-12-17 16:00 | disposition home or self-care (01) | DRG 807 ==
LOC: APU 13:58 → TRG 13:58 → LD 18:00 → OB 12-15 18:00 → LD 12-15 22:29 → OB 12-16 23:03
PROVIDERS: ADMIT Obstetrics & Gynecology; ATTEND Obstetrics & Gynecology
PROC: 10E0XZZ Delivery of Products of Conception, External Approach (ICD-10-PCS; principal; 2021-12-15)
PROC: 0KQM0ZZ Repair Perineum Muscle, Open Approach (ICD-10-PCS; 2021-12-15)
PROC: 3E0DXGC Introduction of Other Therapeutic Substance into Mouth and Pharynx, External Approach (ICD-10-PCS; 2021-12-15)
PROC: 3E0R3BZ Introduction of Anesthetic Agent into Spinal Canal, Percutaneous Approach (ICD-10-PCS; 2021-12-15)
PROC: 00HU33Z Insertion of Infusion Device into Spinal Canal, Percutaneous Approach (ICD-10-PCS; 2021-12-15)
DX: O14.94 Unspecified pre-eclampsia, complicating childbirth (principal); Z37.0 Single live birth; Z3A.38 38 weeks gestation of pregnancy; Z20.822 Contact with and (suspected) exposure to COVID-19; O13.4 Gestational [pregnancy-induced] hypertension without significant proteinuria, complicating childbirth; O99.62 Diseases of the digestive system complicating childbirth; O99.214 Obesity complicating childbirth; O70.1 Second degree perineal laceration during delivery; O24.429 Gestational diabetes mellitus in childbirth, unspecified control; E66.01 Morbid (severe) obesity due to excess calories; K21.9 Gastro-esophageal reflux disease without esophagitis; O99.893 Other specified diseases and conditions complicating puerperium; R00.1 Bradycardia, unspecified
CPT/HCPCS: 36415; 59200; 71045; 76857; 80053; 81001; 82565; 82962; 83550; 83615; 83735; 84439; 84443; 84450; 84460; 84480; 84550; 85014; 85018; 85025; 85027; 86850; 86900; 86901; 88304; 88307; 93005; G0378; J3490; J0290; J0690; J2060; J2210; J2405; J2590; J3010; J3475; J7120